=== PATIENT | female | born 1935 | race African-American/Black ===

== ENCOUNTER 2017-07-06 15:27 | Inpatient (IN) | payer OTHER ==
[~2017-07-06] VITALS: Ht 165.1 cm; Wt 83.0 kg
--- NOTE | 2017-07-06 16:00 | ED CARDIAC/CP/PALPITATIONS ---
History of Present Illness General Chief Complaint: Chest Pain Stated Complaint: PT IS HAVING CHEST PAIN SIB BY URGENT CARE Source: patient, family, old records Exam Limitations: no limitations Vital Signs & Intake/Output Vital Signs & Intake/Output Vital Signs Date Time Temp Pulse Resp B/P B/P Pulse O2 O2 Flow FiO2 Mean Ox Delivery Rate 07/07 1115 66 118/64 07/07 1030 62 108/58 07/07 1003 93 Nasal 2.0L Cannula 07/07 0940 62 108/58 07/07 0911 Nasal 2.0L Cannula 07/07 0600 97.1 50 24 104/70 92 Nasal 2.0L Cannula 07/07 0000 Nasal 2.0L Cannula 07/06 2354 98.3 85 20 149/68 98 Nasal 2.0L Cannula 07/06 2211 Nasal 2.0L Cannula 07/06 2029 93 18 146/65 97 Nasal 2.0L Cannula 07/06 1809 98.8 93 18 146/65 96 Nasal 2.0L Cannula 07/06 1633 89 07/06 1555 99.0 94 20 175/82 94 Room Air ED Intake and Output 07/07 0000 07/06 1200 Intake Total 0 Output Total Balance 0 Intake, Oral 0 Patient 190 lb Weight Weight Reported by Patient Measurement Method Allergies Coded Allergies: Sulfa (Sulfonamide Antibiotics) (Mild, RASH, ITCHING 07/06/17) Penicillins (RASH 07/06/17) Reconcile Medications Acetaminophen (Tylenol Extra Strength) 500 MG TABLET 1 TAB PO BID PAIN ( Reported) Aspirin (Ecotrin*) 81 MG TABLET.DR 1 TAB PO DAILY HEART/BLOOD (Reported) Atorvastatin Calcium 20 MG TABLET 1 TAB PO DAILY CHOLESTEROL (Reported) Digoxin 125 MCG TABLET 1 TAB PO DAILY HEART (Reported) Diltiazem HCl (Cardizem Cd) 240 MG CAP.ER.24H 1 CAP PO QAM HEART/BP (Reported ) Furosemide 40 MG TABLET 160 MG PO BID DIURETIC (Reported) Glimepiride 1 MG TABLET 1 TAB PO BID DM (Reported) Insulin Detemir (Levemir Flextouch) 100 UNIT/ML (3 ML) INSULN.PEN 14 UNITS SC QPM DM (Reported) Latanoprost 0.005 % DROPS 1 GTT OU QPM BOTH EYES (Reported) Methimazole 5 MG TABLET 1 TAB PO DAILY THYROID (Reported) Omeprazole 20 MG CAPSULE.DR 1 CAP PO DAILY GI (Reported) Sennosides (Senna) 8.6 MG TABLET 1 TAB PO BID GI (Reported) Sitagliptin Phos/Metformin HCl (Janumet 50-1,000 MG Tablet) 50 MG-1,000 MG TABLET 1 TAB PO BID DM (Reported) Valsartan 160 MG TABLET 1 TAB PO DAILY BP (Reported) Triage Note: RECEIVED 82 YO FEMALE SENT BY URGENT CARE FOR SEVERE COUGH X 3 TO 4 DAYS, NOW WITH SORENESS TO MID STERNAL AREA. PT REPORTS SOB WITH EXERTION TODAY AND CHEST SORENESS SINCE YESTERDAY. PT REPORTS PRODUCTIVE WHITE COUGH. Triage Nurses Notes Reviewed? yes Onset: Abrupt Duration: day(s): (3-4), intermittent Timing: recent history Quality/Severity: moderate, soarness Location: central Radiation: no radiation Activities at Onset: coughing Prior Chest Pain/Card Workup: angina, cardiac cath Modifying Factors: Worsens With: coughing. Nitro Today/Relief: no nitro taken today Aspirin Today: 81 mg x 1 Associated Symptoms: cough dyspnea HPI: 82-year-old female history of coronary artery disease with stent x 1, CHF diabetes hypertension hypothyroid presents the ER for evaluation with family sent in by an urgent care. The patient states for the past 3-4 days she's had a productive cough of clear sputum associated with soreness in her chest that she states it only present with coughing. She denies any chest pain at rest. she was walking at the grocery store and felt short of breath wit hexertion and lightheaded today so she went to the urgent care. she does not smoke. her legs are chornically swollen, no change from baseline. no abdominal pain, nvd. no fever, chills. she is on lasix 40mg. 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 She was told at the time of her last cath that she did not need any stents however pacemaker was placed at the time. (Anurag So) Past History Travel History Traveled to [place] past 21 day No Medical History Any Pertinent Medical History? see below for history Neurological: NONE EENT: NONE Cardiovascular: CAD, hypertension, hyperlipidemia, systolic CHF, pacemaker Respiratory: asthma Gastrointestinal: NONE Hepatic: NONE Renal: NONE Musculoskeletal: NONE Psychiatric: NONE Endocrine: diabetes, hypothyroidism Blood Disorders: NONE Cancer(s): NONE Surgical History Surgical History: non-contributory Psychosocial History What is your primary language Kazakh Tobacco Use: Never used Family History Hx Contributory? No (Anurag So) Review of Systems Review of Systems Constitutional: Reports: see HPI. Comments Review of systems: See HPI, All other systems negative. Constitutional, no chills no fever, HEENT: no sore throat no congestion Cardiovascular: chest pain , no palpitation Skin: no rashes, no change in skin Respiratory: dyspnea cough sputum no hemoptysis GI: No nausea no vomiting, no diarrhea, no bloating/constipation : No dysuria Muscle skeletal: No joint pain, no back pain, no neck pain, Neurologic: , no headache Heme/endocrine: No bruising (Anurag So) Physical Exam Physical Exam General Appearance: well developed/nourished, alert, awake Cardiovascular: regular rate/rhythm Comments: Well-developed well-nourished person in no acute distress HEENT: Normal EENT exam; PERRL, EOMI, HEAD is atraumatic. moist mucous membranes. Neck: Supple, normal range of motion Back: NFull range of motion Cardiovascular: Regular rate and rhythms no murmurs rubs or gallops, normal JVP Respiratory: Chest nontender.There were no bony deformities, no asymmetry. No respiratory distress. Patient speaking in full complete sentences. Breath sounds clear to auscultation bilaterally: NO W/R/R diminished breath sounds bilaterally Abdomen: Soft, nontender nondistended, no appreciable organomegaly. No ascites. Extremity: 2+ b/l le edema, full range of motion of extremities, Neuro: Alert oriented x3, motor sensory normal, There were no obvious focal neurologic abnormalities. Skin: No appreciable rash on exposed skin, skin is warm and dry. Psych: Mood and affect is normal, memory and judgment is normal. Core Measures ACS in differential dx? Yes CVA/TIA Diagnosis No Sepsis Present: No Sepsis Focused Exam Completed? No (Anurag So) Progress Differential Diagnosis: AMI, aortic dissection, atrial fibrillation, CHF/pulm edema, costochondritis, musculoskeletal pain, pneumonia, pneumothorax, pulmonary embolism, PVCs/PACs, rib fracture, unstable angina Plan of Care: Orders Procedure Date/time Status Consistent Carbohydrate 1 07/07 B Active THERAPIST ORDERS 07/07 0915 Complete OXYGEN SETUP (GEN) 07/07 0800 Complete RT: Reevaluation 07/07 0730 Active RT: Evaluation 07/07 0730 Active MAGNESIUM 07/07 0730 Complete TROPONIN LEVEL 07/07 0600 Complete CBC WITHOUT DIFFERENTIAL 07/07 0600 Complete BASIC ELECTROLYTES PLUS BUN&CR 07/07 0600 Complete EKG 07/07 0600 Active THYROID STIMULATING HORMONE 07/07 0145 Complete FREE T4 07/07 0145 Complete PT Evaluate & Treat 07/07 UNK Active PT EVAL LOW COMPLEX 20 MIN 07/07 UNK Complete Gait Training 07/07 UNK Complete Lab Add-on Test 07/07 UNK Active PHARMACY COMMUNICATION FORM 07/07 UNK Active TROPONIN LEVEL 07/06 2358 Complete EKG 07/06 2358 Active Pathway - chart 07/06 2346 Active House Staff 07/06 2346 Active Patient Data 07/06 2346 Active FingerStick- Glucose 07/06 2238 Active Weight 07/06 2237 Active Vital Signs 07/06 2216 Active Teach/Educate 07/06 221 Active Pain Treatment and Response 07/06 221 Active Nutritional Intake, Monitor 07/06 221 Active Isolation 07/06 2216 Active Intake & Output 07/06 221 Active Patient Care Conference 07/06 221 Active Activity/Ambulation 07/06 221 Active TRC EVALUATION (GEN) 07/06 2117 Complete Patient Data 07/06 1910 Active ED Holding Orders 07/06 1839 Active Admit to inpatient 07/06 1839 Active Vital Signs 07/06 1839 Active Code Status 07/06 1839 Active DIGOXIN 07/06 1700 Complete BLOOD CULTURE 07/06 1649 Active BLOOD CULTURE 07/06 1641 Active RAPID VIRAL INFLUENZA A 07/06 1611 Complete Intake & Output 07/06 1602 Active EKG 07/06 1558 Active Telemetry/Restaurant Recruiter 07/06 1554 Complete TROPONIN LEVEL 07/06 1554 Complete PARTIAL THROMBOPLASTIN TIME 07/06 1554 Complete MAGNESIUM 07/06 1554 Complete COMPREHENSIVE METABOLIC PANEL 07/06 1554 Complete CBC WITHOUT DIFFERENTIAL 07/06 1554 Complete EKG 07/06 1530 Active PEAK FLOW MEASUREMENT (GEN) 07/06 UNK Complete Lab Add-on Test 07/06 UNK Active VTE Mechanical Prophylaxis 07/06 UNK Active Current Medications Sig/Bere Start time Last Medication Dose Stop Time Status Admin Insulin Detemir 14 UNITS QPM 07/07 2200 AC (Levemir) Atorvastatin Calcium 20 MG 1700 07/07 1700 AC (Lipitor) Furosemide 60 MG 0700,1700 07/07 1700 UNVr (Lasix) Albuterol Sulfate 3 ML BID 07/07 1000 AC 07/07 (Proventil) 0929 Aspirin Buffered 81 MG DAILY 07/07 1000 AC 07/07 (Ecotrin) 1018 Digoxin 0.125 MG DAILY 07/07 1000 AC 07/07 (Lanoxin) 1030 Diltiazem HCl 240 MG QAM 07/07 1000 AC 07/07 (Cardizem CD) 1112 Enoxaparin Sodium 40 MG DAILY 07/07 1000 AC 07/07 (Lovenox) 1018 Losartan Potassium 50 MG DAILY 07/07 1000 AC (Cozaar) Methimazole 5 MG DAILY 07/07 1000 AC 07/07 (Tapazole 5 MG 1018 Tablet) Methylprednisolone 40 MG Q12 07/07 1000 AC 07/07 (Solumedrol) 1018 Omeprazole 20 MG DAILY 07/07 1000 AC 07/07 (Prilosec) 1018 Insulin Aspart 0 TIDAC/HS 07/07 0800 AC 07/07 (NovoLOG) 1201 Acetaminophen 650 MG Q6P PRN 07/06 2345 AC 07/07 (Tylenol) 0013 Acetaminophen 1,000 MG Q6P PRN 07/06 2345 AC (Ofirmev) Budesonide/ 2 PUF BID 07/06 2200 AC 07/07 Formoterol Fumarate 1017 (Symbicort) Latanoprost 1 GTT QPM 07/06 2200 AC 07/06 (Xalatan) 2345 Laboratory Tests 07/07/17 0730: Anion Gap 10, Estimated GFR > 60, BUN/Creatinine Ratio 25.0, Magnesium 1.6, Troponin I < 0.01, CBC w Diff NO MAN DIFF REQ, RBC 4.25, MCV 91.8, MCH 30.6, RDW 14.3, MPV 8.9, Gran % 82.3 H, Lymphocytes % 11.3 L, Monocytes % 6.3, Eosinophils % 0, Basophils % 0.1, Absolute Granulocytes 2.9, Absolute Lymphocytes 0.4 L, Absolute Monocytes 0.2, Absolute Eosinophils 0, Absolute Basophils 0, PUBS MCHC 33.3 07/07/17 0619: Magnesium Cancelled 07/07/17 0145: Troponin I < 0.01, TSH 0.050 L, Free T4 1.38 07/06/17 1700: Anion Gap 13, Estimated GFR > 60, BUN/Creatinine Ratio 20.0, Glucose 359 H, Calcium 9.2, Magnesium 1.2 L, Total Bilirubin 0.9, AST 30, ALT 48, Alkaline Phosphatase 91, Troponin I < 0.01, Total Protein 6.7, Albumin 3.8, Globulin 2.9, Albumin/Globulin Ratio 1.3, APTT 28, Digoxin 0.8 07/06/17 1615: CBC w Diff NO MAN DIFF REQ, RBC 4.31, MCV 90.6, MCH 30.0, RDW 14.7 H, MPV 8.5, Gran % 78.7 H, Lymphocytes % 9.6 L, Monocytes % 11.2 H, Eosinophils % 0.2, Basophils % 0.3, Absolute Granulocytes 4.7, Absolute Lymphocytes 0.6 L, Absolute Monocytes 0.7 H, Absolute Eosinophils 0, Absolute Basophils 0, PUBS MCHC 33.1 Microbiology 07/06 1805 BLOOD: Blood Culture - RES 07/06 1700 BLOOD: Blood Culture - RES 07/06 1625 NASOPHARYN: Influenza Virus A & B Rapid Smear - COMP labs ordered, dr gomez and dr jones in room to eval pt and ekg agree no acute changes, likely chronic. chandni rodriguez, pt med with solumedrol 125mg iv. Patient 89 % on room air placed on 2 L up to 96%, premature discharge would BE medically harmful 1800 I discussed with the patient and her son at length all of her lab results given hypoxia patient was attempted to titrate down became hypoxic once again premature discharge in medically harmful discussed the issue a IV steroids when necessary respiratory treatments trend labs and troponin premature discharge in medically harmful which they're in agreement with. 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 dr diez states she will call the son to discuss Diagnostic Imaging: Viewed by Me: Radiology Read, CT Scan. Discussed w/RAD: Radiology Read, CT Scan. Radiology Impression: PATIENT: KALPESH SANTIAGO PRESENT AGE: 82 PATIENT ACCOUNT NO: [id number] : 36 LOCATION: [facility] ORDERING PHYSICIAN: Anurag GARY SERVICE DATE: 07/06/17 EXAM TYPE: RAD - XRY- PORTABLE CHEST XRAY EXAMINATION: XR PORTABLE CHEST CLINICAL INFORMATION: Dyspnea and cough; question pneumonia or congestive heart failure. COMPARISON: None. TECHNIQUE: Portable frontal view of the chest was obtained. FINDINGS: The heart, great vessels, pulmonary vasculature and mediastinum are normal. A dual-lead, dual-chamber pacemaker device is seen, without lead fracture noted. There is no pulmonary vascular congestion or overt pulmonary edema. There is mild scar/ subsegmental atelectasis in the mid left lung field. There are peripheral right mid lung field nodules, possibly calcified granulomas, although this cannot be said with certainty. There is no infiltrate, effusion or pneumothorax. No acute osseous abnormality is seen. IMPRESSION: 1. There is mild left mid lung field scar/subsegmental atelectasis. 2. There are peripheral right mid lung field pulmonary nodules, possibly calcified granulomas. In the absence of outside comparison radiographs documenting long-term stability, consider further evaluation with CT. 3. No focal infiltrate or congestive heart failure is seen. DICTATED BY: Jeronimo Bernard MD DATE/TIME DICTATED:07/06/171638 KOSHER BUTCHER:JOLIE DATE/TIME TRANSCRIBED:07/06/171638 CONFIDENTIAL, DO NOT COPY WITHOUT APPROPRIATE AUTHORIZATION. <Electronically signed in Other Vendor System> SIGNED BY: Jeronimo Bernard MD 07/06/171646, PATIENT: KALPESH SANTIAGO PRESENT AGE: 82 PATIENT ACCOUNT NO: [id number] : 36 LOCATION: [facility] ORDERING PHYSICIAN: Anurag GARY SERVICE DATE: 07/06/17183 EXAM TYPE: CAT - CTA CHEST-PULMONARY EMBOLISM EXAMINATION: CT ANGIOGRAM OF THE CHEST WITH AND WITHOUT CONTRAST (CT PULMONARY ANGIOGRAM FOR PE) CLINICAL INFORMATION: Reason for Study:
Presumptive Dx: RO PE
Signs Symptoms: HYPOXIA, CP
COMPARISON: Same day chest x-ray TECHNIQUE: Prior to contrast administration, noncontrast localization images were obtained. Subsequently, multidetector volumetric imaging was performed from the thoracic inlet to below the diaphragms following the administration of 79 mL Optiray 320 intravenous contrast. No contrast reaction reported. Sagittal, coronal, and MIP oblique sagittal reformatted images were obtained on the CT workstation, uploaded to PACS, and reviewed. Total exam dose-length product 497 mGy-cm. FINDINGS: QUALITY OF STUDY/CONTRAST BOLUS: Satisfactory PULMONARY ARTERIES: No central or segmental pulmonary emboli. THORACIC AORTA: No aneurysm or dissection. LUNG: Pulmonary nodule within the right middle lobe measures 0.7 cm in size (image 288, series 2). There are numerous pulmonary nodules at the left lung base. For example, pulmonary nodule measures 0.6 cm and demonstrates mild spiculation (image 335, series 2). No significant pulmonary nodules are noted in the superior segment of left lower lobe or within the left upper lobe. The right upper lobe appears relatively spared as well. A few tiny 2 mm pulmonary nodules are noted anteriorly. There are calcified granulomas present in the right lower lobe. In addition, there are a few scattered pulmonary nodules measuring less than 4 mm. PLEURA: No pleural effusion or pneumothorax. MEDIASTINUM: The right lobe of the thyroid gland is significantly enlarged and extends inferiorly into the right upper paratracheal space. The main pulmonary artery is enlarged measuring 3.6 cm. Normal heart size. No pericardial effusion. No hilar or mediastinal lymphadenopathy. No evidence of septal bowing or right heart strain. CHEST WALL/AXILLA: No axillary or internal mammary lymphadenopathy. OSSEOUS STRUCTURES: No suspicious lytic or blastic lesion. Diffuse idiopathic skeletal hyperostosis of the midthoracic spine. UPPER ABDOMEN: Scattered hypoattenuating lesions within the liver, partially imaged, are most consistent with cysts. Small hiatal hernia. No reflux of contrast into the hepatic veins to suggest elevated right heart pressures. IMPRESSION: 1. No acute pulmonary embolism. 2. Numerous pulmonary nodules some with suspicious features at the lung bases including the right middle lobe. Given the predominant basilar distribution these could represent metastatic pulmonary nodules. 3. Enlarged main pulmonary artery suggesting underlying pulmonary hypertension. 4. Asymmetrically enlarged thyroid gland. Consider nonemergent thyroid ultrasound evaluation. VTE: negative Various management parameters for solitary pulmonary nodules are in the literature. According to the Fleischner Society, recommendations for pulmonary nodules are as follows: Nodule size < or = to 4 mm in LOW RISK PATIENTS: No follow up needed. Nodule size < or = to 4 mm in HIGH RISK PATIENTS: Follow up CT at 12 months; if unchanged, no further follow up. Nodule size > 4-6 mm in LOW RISK PATIENTS: Follow up CT at 12 months; if unchanged, no further follow up. Nodule size > 4-6 mm in HIGH RISK PATIENTS: Initial follow up CT at 6-12 months, then at 18-24 months if no change. Nodule size > 6-8 mm in LOW RISK PATIENTS: Initial follow up CT at 6-12 months, then at 18-24 months if no change. Nodule size > 6-8 mm in HIGH RISK PATIENTS: Initial follow up CT at 3-6 months, then 9- 12 months and 24 months if no change. Nodule size > 8 mm in LOW RISK PATIENTS: Follow up CT at around 3, 9, and 24 months, dynamic contrast-enhanced CT, PET, and/or biopsy. Nodule size > 8 mm in HIGH RISK PATIENTS: Same as for low-risk patients. DICTATED BY: Ann Osbron MD DATE/TIME DICTATED:07/06/171940 KOSHER BUTCHER:JOLIE DATE/TIME TRANSCRIBED:07/06/171940 CONFIDENTIAL, DO NOT COPY WITHOUT APPROPRIATE AUTHORIZATION. <Electronically signed in Other Vendor System> SIGNED BY: Ann Osborn MD 07/06/171956 Initial ED EKG: nsr at 80, t wave inversions v3-v6, normal axis Rhythm Strip: normal sinus rhythm (Anurag So) Departure Departure Time of Disposition: 1839 Disposition: STILL A PATIENT Condition: Stable Clinical Impression Primary Impression: Asthmatic bronchitis Qualifiers: Asthma severity: mild Asthma persistence: intermittent Asthma complication type: uncomplicated Qualified Code: J45.20 - Mild intermittent asthma, uncomplicated Secondary Impressions: Hypomagnesemia, Hypoxia, Lung nodules Referrals: Chad Hawk MD (PCP/Family) Departure Forms: Customer Survey General Discharge Information Admission Note Spoke With: Uzair Diez MD Documentation of Exam: Documentation of any treatments & extenuating circumstances including Concerns Regarding Discharge (functional status, medication knowledge or non-compliance, living conditions, etc.) that warrant an admission rather than observation: IV STEROIDS RESP TX PRN, TREND LABS, TREN TROPONIN, CARDIOLOGY, PULM CONSULT, PREMATURE DISCHARGE WOULD BE MEDICALLY HARMFUL PT IS NOT O2 DEPENDENT AND HYPOXIC ON ROOM AIR. 96-97% ON 2L (Anurag So) PA/PRODUCT MARKETING DIRECTOR Co-Sign Statement Statement: ED Attending supervision documentation- [X] I saw and evaluated the patient. I have also reviewed all the pertinent lab results and diagnostic results. I agree with the findings and the plan of care as documented in the PA's/PRODUCT MARKETING DIRECTOR's documentation. [X] I have reviewed the ED Record and agree with the PA's/PRODUCT MARKETING DIRECTOR's documentation. [] Additions or exceptions (if any) to the PAs/PRODUCT MARKETING DIRECTOR's note and plan are summarized below: [] (Luis Felipe RAND,Valeri) Critical Care Note Critical Care Note Critical Care Time: non-applicable (Anurag So)
[2017-07-06 16:25] LABS: ABSOLUTE BASOPHIL COUNT 0 /CUMM (0.0-0.2); ABSOLUTE EOSINOPHIL COUNT 0 /CUMM (0.0-0.7); ABSOLUTE GRANULOCYTE CT 4.7 /CUMM (1.4-6.5); ABSOLUTE LYMPH COUNT 0.6 /CUMM (1.2-3.4); ABSOLUTE MONOCYTE COUNT 0.7 /CUMM (0.10-0.60); BASOPHIL % 0.3 % (0.0-2.0); EOSINOPHIL % 0.2 % (0-5); GRANULOCYTE % 78.7 % (42.2-75.2); HEMATOCRIT 39.1 % (37-47); MEAN CORPUSCULAR HGB CONC 33.1 G/DL (33.0-37.0); MEAN CORPUSCULAR VOLUME 90.6 FL (81.0-99.0); MEAN PLATELET VOLUME 8.5 FL (7.4-10.4); PLATELET COUNT 251 /CUMM (130-400); RBC DISTRIBUTION WIDTH 14.7 % (11.5-14.5); RED BLOOD CELL CT 4.31 /CUMM (4.20-5.40)
--- NOTE | 2017-07-06 16:47 | RADIOLOGY REPORT ---
EXAMINATION: XR PORTABLE CHEST CLINICAL INFORMATION: Dyspnea and cough; question pneumonia or congestive heart failure. COMPARISON: None. TECHNIQUE: Portable frontal view of the chest was obtained. FINDINGS: The heart, great vessels, pulmonary vasculature and mediastinum are normal. A dual-lead, dual-chamber pacemaker device is seen, without lead fracture noted. There is no pulmonary vascular congestion or overt pulmonary edema. There is mild scar/subsegmental atelectasis in the mid left lung field. There are peripheral right mid lung field nodules, possibly calcified granulomas, although this cannot be said with certainty. There is no infiltrate, effusion or pneumothorax. No acute osseous abnormality is seen. IMPRESSION: 1. There is mild left mid lung field scar/subsegmental atelectasis. 2. There are peripheral right mid lung field pulmonary nodules, possibly calcified granulomas. In the absence of outside comparison radiographs documenting long-term stability, consider further evaluation with CT. 3. No focal infiltrate or congestive heart failure is seen.
[2017-07-06 17:20] LABS: PTT 28 SEC (25-37)
[2017-07-06] MEDS ORDERED: ASPIRIN EC81 M1 PO (18:12)
[2017-07-06] MEDS ORDERED: SENNA8.6 M3 PO (18:13)
[2017-07-06] MEDS ORDERED: TYLENOL EXTRA500 M2 PO (18:13)
[2017-07-06] MEDS ORDERED: LEVEMIR FL100 UNIT/1 SC (18:14)
[2017-07-06] MEDS ORDERED: LATANOPROST2.5 ML OU (18:14)
[2017-07-06] MEDS ORDERED: FUROSEMIDE40 M1 PO (18:15)
[2017-07-06] MEDS ORDERED: OMEPRAZOLE20 M2 PO (18:16)
[2017-07-06] MEDS ORDERED: ATORVASTATIN CA20 M1 PO (18:16)
[2017-07-06] MEDS ORDERED: DIGOXIN125 MCG PO (18:16)
[2017-07-06] MEDS ORDERED: METHIMAZOLE5 M1 PO (18:16)
[2017-07-06] MEDS ORDERED: GLIMEPIRIDE1 M1 PO (18:16)
[2017-07-06] MEDS ORDERED: CARDIZEM CD240 M1 PO (18:17)
[2017-07-06] MEDS ORDERED: JANUMET 50-1,01 EACH PO (18:17)
[2017-07-06] MEDS ORDERED: VALSARTAN160 M1 PO (18:17)
--- NOTE | 2017-07-06 19:45 | Cons- Cardiology ---
General Information and HPI Consulting Request Date of Consult: 07/06/17 Requested By: Dr. Briscoe Reason for Consult: Chest pain with abnormal ECG Source of Information: patient, family Exam Limitations: no limitations History of Present Illness: The patient is a very nice 82 year old female who is followed by physicians in [place]. The patient is in the ER after being sent from the Urgent care center for evaluation of several days of cough and now with onset of chest pressure which appears to be musculoskeletal related to the cough. I was asked by Dr Briscoe in the ER to evaluate the patient due to the presence of her chest discomfort and an abnormal ECG. THe patient describes chest discomfort which is different than her prior cardiac symptoms. She does have a history of knownb CAD and stent but, per the patient, had a followup cath several months ago which showed patent coronaries.. She also notes that she had a PPM placed at that time. Allergies/Medications Allergies: Coded Allergies: Sulfa (Sulfonamide Antibiotics) (Mild, RASH, ITCHING 07/06/17) Penicillins (RASH 07/06/17) Home Med List: Acetaminophen (Tylenol Extra Strength) 500 MG TABLET 1 TAB PO BID PAIN ( Reported) Aspirin (Ecotrin*) 81 MG TABLET.DR 1 TAB PO DAILY HEART/BLOOD (Reported) Atorvastatin Calcium 20 MG TABLET 1 TAB PO DAILY CHOLESTEROL (Reported) Digoxin 125 MCG TABLET 1 TAB PO DAILY HEART (Reported) Diltiazem HCl (Cardizem Cd) 240 MG CAP.ER.24H 1 CAP PO QAM HEART/BP (Reported ) Furosemide 40 MG TABLET 160 MG PO BID DIURETIC (Reported) Glimepiride 1 MG TABLET 1 TAB PO BID DM (Reported) Insulin Detemir (Levemir Flextouch) 100 UNIT/ML (3 ML) INSULN.PEN 14 UNITS SC QPM DM (Reported) Latanoprost 0.005 % DROPS 1 GTT OU QPM BOTH EYES (Reported) Methimazole 5 MG TABLET 1 TAB PO DAILY THYROID (Reported) Omeprazole 20 MG CAPSULE.DR 1 CAP PO DAILY GI (Reported) Sennosides (Senna) 8.6 MG TABLET 1 TAB PO BID GI (Reported) Sitagliptin Phos/Metformin HCl (Janumet 50-1,000 MG Tablet) 50 MG-1,000 MG TABLET 1 TAB PO BID DM (Reported) Valsartan 160 MG TABLET 1 TAB PO DAILY BP (Reported) Current Medications: Current Medications Sig/Bere Start time Last Medication Dose Route Stop Time Status Admin Albuterol Sulfate 3 ML ONCE ONE 07/06 1630 DC 07/06 INH 07/06 1631 1629 Insulin Detemir 14 UNITS ONCE ONE 07/06 1845 DC 07/06 SC 07/06 1846 1920 Ipratropium Beals 2.5 ML ONCE ONE 07/06 1630 DC 07/06 INH 07/06 1631 1629 Magnesium Sulfate 1 GM ONCE ONE 07/06 1845 AC 07/06 Dextrose/Water 100 ML IV 07/06 2244 1920 Methylprednisolone 0 .STK-MED ONE 07/06 1626 DC .ROUTE Methylprednisolone 125 MG ONCE ONE 07/06 1615 DC 07/06 IV 07/06 1616 1630 Past History Travel History Traveled to [place] past 21 day No Medical History Neurological: NONE EENT: NONE Cardiovascular: CAD, hypertension, hyperlipidemia, systolic CHF, pacemaker Respiratory: asthma Gastrointestinal: NONE Hepatic: NONE Renal: NONE Musculoskeletal: NONE Psychiatric: NONE Endocrine: diabetes, hypothyroidism Blood Disorders: NONE Cancer(s): NONE Surgical History Surgical History: non-contributory Exam & Diagnostic Data Vital Signs and I&O Vital Signs Date Time Temp Pulse Resp B/P B/P Pulse O2 O2 Flow FiO2 Mean Ox Delivery Rate 07/06 1809 98.8 93 18 146/65 96 Nasal 2.0L Cannula 07/06 1633 89 07/06 1555 99.0 94 20 175/82 94 Room Air Intake & Output 07/06 1600 07/06 0800 07/06 0000 07/05 1600 07/05 0800 07/05 0000 Intake Total Output Total Balance Patient 190 lb Weight Weight Estimated Measurement Method Physical Exam: General: Well-developed well-nourished female in no acute distress HEENT: Normal Neck: Supple, normal range of motion, JVP normal, Carotids normal Cardiovascular: Regular rate and rhythms , 1/6 systolic murmur Respiratory: Chest nontender.Clear to A / P bilaterally Abdomen: Soft, nontender nondistended, no appreciable organomegaly. No ascites. Extremity: 1-2+ b/l le edema, full range of motion of extremities, Neuro: Grossly non focal Skin: No appreciable rash on exposed skin, skin is warm and dry. Labs/Oli Results: Laboratory Tests 07/06 07/06 1700 1615 Chemistry Sodium (137 - 145 mmol/L) 136 L Potassium (3.5 - 5.1 mmol/L) 4.3 Chloride (98 - 107 mmol/L) 94 L Carbon Dioxide (22 - 30 mmol/L) 30 Anion Gap (5 - 16) 13 BUN (7 - 17 mg/dL) 14 Creatinine (0.5 - 1.0 mg/dL) 0.7 Estimated GFR (>60 ml/min) > 60 BUN/Creatinine Ratio (7 - 25 %) 20.0 Glucose (65 - 99 mg/dL) 359 H Calcium (8.4 - 10.2 mg/dL) 9.2 Magnesium (1.6 - 2.3 mg/dL) 1.2 L Total Bilirubin (0.2 - 1.3 mg/dL) 0.9 AST (14 - 36 U/L) 30 ALT (9 - 52 U/L) 48 Alkaline Phosphatase (<127 U/L) 91 Troponin I (< 0.11 ng/ml) < 0.01 Total Protein (6.3 - 8.2 g/dL) 6.7 Albumin (3.5 - 5.0 g/dL) 3.8 Globulin (1.9 - 4.2 gm/dL) 2.9 Albumin/Globulin Ratio (1.1 - 2.2 %) 1.3 Coagulation APTT (25 - 37 SEC) 28 Hematology CBC w Diff NO MAN DIFF REQ WBC (4.8 - 10.8 /CUMM) 6.0 RBC (4.20 - 5.40 /CUMM) 4.31 Hgb (12.0 - 16.0 G/DL) 12.9 Hct (37 - 47 %) 39.1 MCV (81.0 - 99.0 FL) 90.6 MCH (27.0 - 31.0 PG) 30.0 RDW (11.5 - 14.5 %) 14.7 H Plt Count (130 - 400 /CUMM) 251 MPV (7.4 - 10.4 FL) 8.5 Gran % (42.2 - 75.2 %) 78.7 H Lymphocytes % (20.5 - 51.1 %) 9.6 L Monocytes % (1.7 - 9.3 %) 11.2 H Eosinophils % (0 - 5 %) 0.2 Basophils % (0.0 - 2.0 %) 0.3 Absolute Granulocytes (1.4 - 6.5 /CUMM) 4.7 Absolute Lymphocytes (1.2 - 3.4 /CUMM) 0.6 L Absolute Monocytes (0.10 - 0.60 /CUMM) 0.7 H Absolute Eosinophils (0.0 - 0.7 /CUMM) 0 Absolute Basophils (0.0 - 0.2 /CUMM) 0 PUBS MCHC (33.0 - 37.0 G/DL) 33.1 Diagnostic Data EKG Results NSR; PRWP; ST depressioin suggestive of ischemia vs strain pattern. CXR Results FINDINGS: The heart, great vessels, pulmonary vasculature and mediastinum are normal. A dual-lead, dual-chamber pacemaker device is seen, without lead fracture noted. There is no pulmonary vascular congestion or overt pulmonary edema. There is mild scar/subsegmental atelectasis in the mid left lung field. There are peripheral right mid lung field nodules, possibly calcified granulomas, although this cannot be said with certainty. There is no infiltrate, effusion or pneumothorax. No acute osseous abnormality is seen. IMPRESSION: 1. There is mild left mid lung field scar/subsegmental atelectasis. 2. There are peripheral right mid lung field pulmonary nodules, possibly calcified granulomas. In the absence of outside comparison radiographs documenting long-term stability, consider further evaluation with CT. 3. No focal infiltrate or congestive heart failure is seen. Assessment/Plan Assessment/Plan Assessment: 1. Chest pain syndrome 2. Cough with possible bronchitis 3. History of CAD / stent 4. PPM 5. Hypomagnesemia 6. Hyperglycemia 7. Recommendations: -Check troponin x 2 -Obtain copies of outside cardiology records. -Replete Mg -Repeat ECG in several hours and in AM if necessary. Consult Acknowledgment - Thank you for your consult request.
--- NOTE | 2017-07-06 19:49 | History & Physical ---
Yelitza RAND,[facility] 07/06/171948: General Information and HPI MD Statement: I have seen and personally examined KALPESH DE LA TORRE and documented this H&P. The patient is a 82 year old F who presented with a patient stated chief complaint of [productive cough]. Source of Information: patient, family Exam Limitations: no limitations History of Present Illness: Ms. De La Torre is an 82-year-old lady with past medical history significant for coronary artery disease status post stent placement, atrial fibrillation(not on anticoagulation), hypertension, hyperlipidemia, CHF, diabetes, hypothyroidism and asthma presents with worsening cough with sputum production for the past 3-4 days. According to the patient, she has chronic productive cough with clear/frothy sputum for years but it recently got worse with increased sputum production, shortness of breath and wheezing for the past 3-4 days. She went to [employer] this morning to get herself some stuff where she felt extremely short of breath, weak and lightheaded, was sent to the urgent care clinic, who referred her to the [place] ER for further evaluation. Shortness of breath is worse especially when lying down. Also reports chest soreness with cough but denies any chest pain, palpitations, nausea, vomiting or diaphoresis. She has received her flu shot this year, denies any fever/chills, sick contacts, recent travel or any new -onset rash. Also reports abdominal discomfort with diarrhea since yesterday( had one episode of loose stools yesterday and 1 episode today) but denies any blood in the stools. Patient has not been taking her Symbicort for the past 9 months and has not followed up with her logistics planning manager. Denies any previous hospitalizations for asthma exacerbation or history of intubation. Allergies/Medications Allergies: Coded Allergies: Sulfa (Sulfonamide Antibiotics) (Mild, RASH, ITCHING 07/06/17) Penicillins (RASH 07/06/17) Home Med list Acetaminophen (Tylenol Extra Strength) 500 MG TABLET 1 TAB PO BID PAIN ( Reported) Aspirin (Ecotrin*) 81 MG TABLET.DR 1 TAB PO DAILY HEART/BLOOD (Reported) Atorvastatin Calcium 20 MG TABLET 1 TAB PO DAILY CHOLESTEROL (Reported) Digoxin 125 MCG TABLET 1 TAB PO DAILY HEART (Reported) Diltiazem HCl (Cardizem Cd) 240 MG CAP.ER.24H 1 CAP PO QAM HEART/BP (Reported ) Furosemide 40 MG TABLET 160 MG PO BID DIURETIC (Reported) Glimepiride 1 MG TABLET 1 TAB PO BID DM (Reported) Insulin Detemir (Levemir Flextouch) 100 UNIT/ML (3 ML) INSULN.PEN 14 UNITS SC QPM DM (Reported) Latanoprost 0.005 % DROPS 1 GTT OU QPM BOTH EYES (Reported) Methimazole 5 MG TABLET 1 TAB PO DAILY THYROID (Reported) Omeprazole 20 MG CAPSULE.DR 1 CAP PO DAILY GI (Reported) Sennosides (Senna) 8.6 MG TABLET 1 TAB PO BID GI (Reported) Sitagliptin Phos/Metformin HCl (Janumet 50-1,000 MG Tablet) 50 MG-1,000 MG TABLET 1 TAB PO BID DM (Reported) Valsartan 160 MG TABLET 1 TAB PO DAILY BP (Reported) Past History Travel History Traveled to [place] past 21 day No Medical History Neurological: NONE EENT: NONE Cardiovascular: CAD, CHF, hypertension, hyperlipidemia, pacemaker placement( January 2017) Respiratory: asthma Gastrointestinal: NONE Hepatic: NONE Renal: NONE Musculoskeletal: NONE Psychiatric: NONE Endocrine: diabetes, hypothyroidism Blood Disorders: NONE Cancer(s): NONE Surgical History Surgical History: knee replacement Past Family/Social History Family History Relations & Conditions if any FATHER *No pertinent family history FH: hypertension MOTHER *No pertinent family history FH: diabetes mellitus FH: hypertension BROTHER FH: diabetes mellitus SISTER FH: diabetes mellitus Psychosocial History Where do you live? Home Who Do You Live With? self Primary Language: Luxembourgish Smoking Status: Never Smoked ETOH Use: denies use Illicit Drug Use: denies illicit drug use Functional Ability ADLs Independent: dressing, eating, toileting, bathing. Review of Systems Review of Systems Constitutional: Reports: weakness. EENTM: Reports: no symptoms. Cardiovascular: Reports: no symptoms. Respiratory: Reports: cough, short of breath, sputum production, wheezing. GI: Reports: diarrhea. Genitourinary: Reports: no symptoms. Musculoskeletal: Reports: joint pain, neck pain. Skin: Reports: no symptoms. Neurological/Psychological: Reports: no symptoms. Hematologic/Endocrine: Reports: no symptoms. Immunologic/Allergic: Reports: no symptoms. All Other Systems: Reviewed and Negative Exam & Diagnostic Data Last 24 Hrs of Vital Signs/I&O Vital Signs Date Time Temp Pulse Resp B/P B/P Pulse O2 O2 Flow FiO2 Mean Ox Delivery Rate 07/06 2354 98.3 85 20 149/68 98 Nasal 2.0L Cannula 07/06 2211 Nasal 2.0L Cannula 07/06 202 93 18 146/65 97 Nasal 2.0L Cannula 07/06 1809 98.8 93 18 146/65 96 Nasal 2.0L Cannula 07/06 1633 89 07/06 1555 99.0 94 20 175/82 94 Room Air Intake & Output 07/07 0800 07/07 0000 07/06 1600 Intake Total 0 Output Total Balance 0 Intake, Oral 0 Patient 190 lb 190 lb Weight Weight Reported by Patient Estimated Measurement Method Physical Exam General Appearance Alert, Oriented X3, Cooperative, No Acute Distress Skin No Rashes, No Breakdown HEENT Atraumatic, PERRLA, EOMI, Mucous Membr. moist/pink Neck Supple, No JVD, No thryomegaly Cardiovascular Regular Rate, Normal S1, Normal S2 Lungs Wheezing on Bilateral Lung hollins Abdomen Normal Bowel Sounds, Soft, No Tenderness Extremities No Clubbing, No Cyanosis, Normal Pulses, +2 pitting edema bilaterally, Chronic venous stasis changes Last 24 Hrs of Labs/Oli: Laboratory Tests 07/06/171699: Anion Gap 13, Estimated GFR > 60, BUN/Creatinine Ratio 20.0, Glucose 359 H, Calcium 9.2, Magnesium 1.2 L, Total Bilirubin 0.9, AST 30, ALT 48, Alkaline Phosphatase 91, Troponin I < 0.01, Total Protein 6.7, Albumin 3.8, Globulin 2.9, Albumin/Globulin Ratio 1.3, APTT 28, Digoxin 0.8 07/06/17 1615: CBC w Diff NO MAN DIFF REQ, RBC 4.31, MCV 90.6, MCH 30.0, RDW 14.7 H, MPV 8.5, Gran % 78.7 H, Lymphocytes % 9.6 L, Monocytes % 11.2 H, Eosinophils % 0.2, Basophils % 0.3, Absolute Granulocytes 4.7, Absolute Lymphocytes 0.6 L, Absolute Monocytes 0.7 H, Absolute Eosinophils 0, Absolute Basophils 0, PUBS MCHC 33.1 Microbiology 07/06 1805 BLOOD: Blood Culture - RECD 07/06 1700 BLOOD: Blood Culture - RECD 07/06 1625 NASOPHARYN: Influenza Virus A & B Rapid Smear - COMP Diagnostic Data CXR Results IMPRESSION: 1. There is mild left mid lung field scar/subsegmental atelectasis. 2. There are peripheral right mid lung field pulmonary nodules, possibly calcified granulomas. In the absence of outside comparison radiographs documenting long-term stability, consider further evaluation with CT. 3. No focal infiltrate or congestive heart failure is seen. Other Results CTA CHEST-PULMONARY EMBOLISM IMPRESSION: 1. No acute pulmonary embolism. 2. Numerous pulmonary nodules some with suspicious features at the lung bases including the right middle lobe. Given the predominant basilar distribution these could represent metastatic pulmonary nodules. 3. Enlarged main pulmonary artery suggesting underlying pulmonary hypertension. 4. Asymmetrically enlarged thyroid gland. Consider nonemergent thyroid ultrasound evaluation. VTE: negative Assessment/Plan Assessment: Ms. De La Torre is an 82-year-old lady with past medical history significant for coronary artery disease status post stent placement, atrial fibrillation(not on anticoagulation), hypertension, hyperlipidemia, CHF, diabetes, hypothyroidism and asthma presents with worsening cough with sputum production for the past 3-4 days. A/P; 1. Asthma exacerbation; - We will admit the patient to general medicine floor - Start on IV Solu-Medrol 40 mg every 12 - [facility] nebs - Restart home dose of Symbicort - Follow-up sputum cultures - Supplemental oxygen as needed 2. EKG changes; - History of coronary artery disease status post stent placement in 2014, repeat recent cath in January 2017 - Initial set of troponins negative, we'll repeat troponins and EKG x 2 to rule out ACS. - Appreciate cardiology recommendations 3. Hypomagnesemia(1.2); - Will replete magnesium levels - Repeat labs in a.m. 4. Lung nodules on CT chest - Patient already aware of the lung nodules but unsure about the source/cause - We will obtain all records from [facility](including colonoscopy/mammogram if ever done in the past) 5. Diabetes - We will hold oral hypoglycemic agents - Start the patient on insulin sliding scale and Accu-Cheks - Continue Levemir 14 units daily at bedtime 6. Chronic medical conditions(hypertension, hypothyroidism, CHF, atrial fibrillation); - We will continue home medications DVT prophylaxis; Alps only(no pharmacological DVT prophylaxis because of her history of GI bleed) Patient is full code As Ranked By This Provider Problem List: 1. Hypoxia 2. Hypomagnesemia 3. Lung nodule Core Measures/Misc (03/10) Acute Coronary Syndrome ACS Diagnosis: No Congestive Heart Failure Congestive Heart Failure Diagnosis No Cerebrovascular Accident CVA/TIA Diagnosis: No VTE (View Protocol) VTE Risk Factors Age>40 No Mechanical VTE Prophylaxis d/t N/A MechProphylax Ordered No VTE Pharm Prophylaxis d/t Medical Contraindication Sepsis (View protocol) Sepsis Present: No Yudi Lam 07/07/17 0016: Resident Review Statement Resident Statement: examined this patient, discussed with manager international Other Findings: Patient is a 82 year-old woman with a past medical history significant for, atrial fibrillation(not on any anticoagulation due to GI bleed), history of coronary artery disease status post stent 2014, hypertension, hyperlipidemia, heart failure, history of asthma, history of hypothyroidism, diabetes mellitus, GERD presented to the ED for the evaluation of worsening shortness of breath and productive cough. Patient mentioned that she has a baseline productive cough with clear phlegm for many years but for the last 3-4 days she she felt more congested, coughing a lot , bringing up more phlegm. Also she has been having shortness of breath without any chest discomfort or palpitations sweating. Patient has a history of asthma stopped taking Symbicort about 9-10 months ago by herself(for unexplained/ unknown reasons). She is not taking any rescue inhalers at home as well, not on any oxygen, never been intubated for asthma. In the morning, when patient went for grocery she felt really weak /Lethargic, dizzy and short of breath and went to urgent care. After evaluation urgent care physician insisted the patient to go to ER but patient refused and drove back home, but patient's symptoms never improved and ultimately was brought into the ER for further assessment. Patient denied any recent illnesses fever or chills, received her flu shot this season. Denies any nausea vomiting abdominal discomfort.Has chest soreness likey due to coughing spells. She has a history of bilateral leg swelling right more than left from her underlying CHF(not getting any worse). She follows up with the warp doffer Dr. gongora and logistics planning manager at [facility]. Of the note, she mentioned above patient had a cardiac cath about 40 months ago in 2014 and had stent placed. She was on Brelinta, for a year, after stopping the medication patient developed chest pain syndrome again and had another cardiac cath in January 2016, that was clean however pacemaker was placed at the time. Patient has a history of long-standing nodules, told by her logistics planning manager at [facility], never been worked up. She never smoked and does not drink any alcohol Vitals on admission Temperature 99.0, pulse 94, respiratory 20, blood pressure 135/82 on 2 L. On examination: General Appearance:alert oriented 3 , not in acute distress Skin: Grossly normal HEENT: PERRLA Neck: Supple, No JVD Cardiovascular: Regular Rate, Normal S1, Normal S2. Lungs: Bilateral wheeze on exam Abdominal exam : Denies abdominal tenderness without any rebound with positive bowel sounds. Neurological: Grossly intact Pertinent labs on admission Normal WBC count H&H stable at 12.9/39, elevated blood glucose levels 359 hypomagnesemia 1.2 slight hyponatremia 136. Flu swab negative CTA chest:. No acute pulmonary embolism.Numerous pulmonary nodules some with suspicious features at the lung bases including the right middle lobe. Given the predominant basilar distribution these could represent metastatic pulmonary nodules Enlarged main pulmonary artery suggesting underlying pulmonary hypertension. Asymmetrically enlarged thyroid gland. Consider nonemergent thyroid ultrasound evaluation. VTE: negative Assessment and plan This is a 82-year-old woman with multiple comorbidities including coronary artery disease status post stent 2015, hypertension and hyperlipidemia, history of atrial fibrillation, asthma currently not on any long and short-acting inhalers ,history of diabetes mellitus hypothyroidism presented for evaluation of worsening shortness of breath with cough. On the basis of her history(stopped long and short-acting inhalers) along with the lung examination(bilateral wheeze) and hypoxia, will treat her as for asthma exacerbation. With hypoxia and history of recent cardiac cath we will do serial troponin EKG to rule out any underlying ACS. Problem list Acute hypoxic respiratory failure due to asthma exacerbation(due to noncompliance) Hypoxia with chest soreness(history of recent cardiac cath, coronary artery disease status post stents 2014) History of lung nodules(metastatic?) Hypomagnesemia History of CHF History of hypertension and hyperlipidemia History of diabetes mellitus History of hypothyroidism Plan Acute hypoxic respiratory failure due to asthma exacerbation(due to noncompliance) * Admit the patient GenMed floor * Continue with IV Solu-Medrol 40 mg every 8. * Restart Symbicort, * TRC nebs * Check peak flows * Continue oxygen to keep saturation around 92%. * Watch for any hemodynamic instability. Chest pain/hypoxia with non specific ekg changes -musculoskeletal (history of recent cardiac cath, coronary artery disease status post stents 2014) * We'll do serial troponin and EKG to rule out an underlying ACS, due to significant cardiac history. * Dr. Salazar already evaluated the patient. History of lung nodules(metastatic?) * Patient has a history of long-standing nodules, told by her logistics planning manager at [facility], never been worked up-as per patient * Please obtain more information in the morning and get records from [facility] Hypomagnesemia * Mag level I.2 * Give 2 g of IV medication sulfate recheck to mention levels. History of atrial fibrillation not on any anticoagulation due to to GI bleed * Continue Cardizem. History of CHF * Continue home medications including valsartan, and Lasix History of hypertension and hyperlipidemia * Continue all medications. History of diabetes mellitus * Levemir 14 units subcutaneous at bedtime * Hold hypoglycemics start the patient on NovoLog sliding scale with Accu-Cheks. History of hyperthyroidism: * Continue methimazole. DVT prophylaxis with subcutaneous Lovenox Mild to moderate pain control with tylenol Patient is full code. Norris RAND, [facility] 07/07/17 0029: Attending MD Review Statement Attending Statement Attending MD Statement: examined this patient, discuss w/resident/PA/FLOOR POLISHER, agreed w/resident/PA/FLOOR POLISHER, reviewed images, amended to note Attending Assessment/Plan: 82 yo F who mainly follows at [facility], has a h/o CAD s/p LAD stent (most recent cath in Jan 2017- patent coronaries), s/p PPM, HTN, CHF, asthma, hyperthyroidism , T2DM, Afib not on AC due to GI bleed, is here for evaluation of worsening exertional dyspnea and productive cough for the past 3-4 days associated with chills. Patient was at [employer] this morning, when she suddenly felt weak, short of breath and wheezy, to the point that she was unable to lift up her shopping bags. She drove down to the Urgent Care center and was advised to come to the ER. However, she drove home and her son then brought her to [place] ER. Patient reports coughing too hard in the past few days which resulted in chest soreness, she states this is not similar to her previous cardiac chest pain. Patient has h/o asthma and ran out of her symbicort for past 9 months. She forgot to get it refilled. She is not on any rescue inhaler. She received her flu vaccine but has never received pneumonia vaccine. Denies sick contacts recently. She also reports 2 day h /o nonbloody diarrhea 2-3 episodes per day, without abdominal discomfort or nausea/ vomiting. She is unclear about her h/o colonoscopy/EGD. Vitals stable, except on ambulation, patient dropped her O2 sats to 88-89% on RA. Chest b/l reduced air entry with scattered expiratory wheeze+. Labs unremarkable except for glucose 359, Mag 1.2, trop neg. Digoxin 0.8. CXR: mild left mid lung field scar/subsegmental atelectasis, peripheral right mid lung pulmonary nodules possibly calcified granulomas, no focal infiltrate or CHF. CTA chest: no PE, numerous pulmonary nodules possible metastatic, enlarged main pulmonary artery pulmonary hypertension, enlarged thyroid gland. EKG: SR/ ?Afib (baseline artifact), intermittently paced, ST depression with TWI in inferior leads and V3-6 (no old EKG to compare). Assessment and plan: 1. Acute hypoxic respiratory failure 2. Asthma exacerbation in the setting of bronchitis 3. Chest pain likely musculoskeletal 4. Hypomagnesemia 5. Lung nodules patient is aware of these but has not been worked up (? metastatic) 6. Hyperthyroidism 7. Diarrhea possibly viral etiology - Admit to general medicine - [facility] nebs - IV solumedrol 40mg BID followed by rapid prednisone taper - Initiate symbicort - No need for antibiotics - Check ambulatory sats in AM - Serial EKG and troponin - Obtain records from Pulm specialist and Fire Loss Prevention Engineer - Dr. Schroeder seen in ER, EKG changes are probably old. - I tried to obtain collateral information from Son Anurag De La Torre ([phone]) but he did not answer the phone call. - Discuss plan for further work up of lung nodules - Consult Pulm in AM - Replete electrolytes to keep Mag > 2.0 amd K > 4.0 - Patient appears euvolemic, no need for IV fluids - Check TSH, free T4. - Resume home meds lasix, valsartan, aspirin, cardizem, digoxin, methimazole, statin and levemir - Hold Janumet and glimepiride - At baseline ambulates with a cane, obtain PT eval. DVT ppx Lovenox. Full code.
--- NOTE | 2017-07-06 19:57 | CT SCAN REPORT ---
EXAMINATION: CT ANGIOGRAM OF THE CHEST WITH AND WITHOUT CONTRAST (CT PULMONARY ANGIOGRAM FOR PE) CLINICAL INFORMATION: Reason for Study:
Presumptive Dx: RO PE
Signs Symptoms: HYPOXIA, CP
COMPARISON: Same day chest x-ray TECHNIQUE: Prior to contrast administration, noncontrast localization images were obtained. Subsequently, multidetector volumetric imaging was performed from the thoracic inlet to below the diaphragms following the administration of 79 mL Optiray 320 intravenous contrast. No contrast reaction reported. Sagittal, coronal, and MIP oblique sagittal reformatted images were obtained on the CT workstation, uploaded to PACS, and reviewed. Total exam dose-length product 497 mGy-cm. FINDINGS: QUALITY OF STUDY/CONTRAST BOLUS: Satisfactory PULMONARY ARTERIES: No central or segmental pulmonary emboli. THORACIC AORTA: No aneurysm or dissection. LUNG: Pulmonary nodule within the right middle lobe measures 0.7 cm in size (image 288, series 2). There are numerous pulmonary nodules at the left lung base. For example, pulmonary nodule measures 0.6 cm and demonstrates mild spiculation (image 335, series 2). No significant pulmonary nodules are noted in the superior segment of left lower lobe or within the left upper lobe. The right upper lobe appears relatively spared as well. A few tiny 2 mm pulmonary nodules are noted anteriorly. There are calcified granulomas present in the right lower lobe. In addition, there are a few scattered pulmonary nodules measuring less than 4 mm. PLEURA: No pleural effusion or pneumothorax. MEDIASTINUM: The right lobe of the thyroid gland is significantly enlarged and extends inferiorly into the right upper paratracheal space. The main pulmonary artery is enlarged measuring 3.6 cm. Normal heart size. No pericardial effusion. No hilar or mediastinal lymphadenopathy. No evidence of septal bowing or right heart strain. CHEST WALL/AXILLA: No axillary or internal mammary lymphadenopathy. OSSEOUS STRUCTURES: No suspicious lytic or blastic lesion. Diffuse idiopathic skeletal hyperostosis of the midthoracic spine. UPPER ABDOMEN: Scattered hypoattenuating lesions within the liver, partially imaged, are most consistent with cysts. Small hiatal hernia. No reflux of contrast into the hepatic veins to suggest elevated right heart pressures. IMPRESSION: 1. No acute pulmonary embolism. 2. Numerous pulmonary nodules some with suspicious features at the lung bases including the right middle lobe. Given the predominant basilar distribution these could represent metastatic pulmonary nodules. 3. Enlarged main pulmonary artery suggesting underlying pulmonary hypertension. 4. Asymmetrically enlarged thyroid gland. Consider nonemergent thyroid ultrasound evaluation. VTE: negative Various management parameters for solitary pulmonary nodules are in the literature. According to the Fleischner Society, recommendations for pulmonary nodules are as follows: Nodule size < or = to 4 mm in LOW RISK PATIENTS: No follow up needed. Nodule size < or = to 4 mm in HIGH RISK PATIENTS: Follow up CT at 12 months; if unchanged, no further follow up. Nodule size > 4-6 mm in LOW RISK PATIENTS: Follow up CT at 12 months; if unchanged, no further follow up. Nodule size > 4-6 mm in HIGH RISK PATIENTS: Initial follow up CT at 6-12 months, then at 18-24 months if no change. Nodule size > 6-8 mm in LOW RISK PATIENTS: Initial follow up CT at 6-12 months, then at 18-24 months if no change. Nodule size > 6-8 mm in HIGH RISK PATIENTS: Initial follow up CT at 3-6 months, then 9-12 months and 24 months if no change. Nodule size > 8 mm in LOW RISK PATIENTS: Follow up CT at around 3, 9, and 24 months, dynamic contrast-enhanced CT, PET, and/or biopsy. Nodule size > 8 mm in HIGH RISK PATIENTS: Same as for low-risk patients.
--- NOTE | 2017-07-06 20:16 | Admission Certification ---
Admission Certification Certification Statement - As attending physician, I certify that at the time of - admission, based on clinical presentation, severity of - symptoms, need for further diagnostic testing and - therapeutic interventions, and risk of adverse outcomes - without in-hospital treatment, in my clinical assessment, - this patient requires an acute hospital stay for a minimum - of two nights or longer. I have also considered psychsocial - factors such as support system, advanced age, financial - issues, cognitive issues, and failed out-patient treatments, - past re-admission history, safety of patient, and lack of - compliance as applicable. Specific rationale supporting this admission is: Acute hypoxic respiratory failure, bronchitis, asthma exacerbation, lung nodules.
[2017-07-06 23:54] VITALS: BP 149/68
[2017-07-07 06:00] VITALS: BP 104/70
[2017-07-07 08:32] LABS: ABSOLUTE BASOPHIL COUNT 0 /CUMM (0.0-0.2); ABSOLUTE EOSINOPHIL COUNT 0 /CUMM (0.0-0.7); ABSOLUTE GRANULOCYTE CT 2.9 /CUMM (1.4-6.5); ABSOLUTE LYMPH COUNT 0.4 /CUMM (1.2-3.4); ABSOLUTE MONOCYTE COUNT 0.2 /CUMM (0.10-0.60); BASOPHIL % 0.1 % (0.0-2.0); EOSINOPHIL % 0 % (0-5); GRANULOCYTE % 82.3 % (42.2-75.2); MEAN CORPUSCULAR HGB 30.6 PG (27.0-31.0); MEAN CORPUSCULAR HGB CONC 33.3 G/DL (33.0-37.0); MEAN CORPUSCULAR VOLUME 91.8 FL (81.0-99.0); MEAN PLATELET VOLUME 8.9 FL (7.4-10.4); PLATELET COUNT 185 /CUMM (130-400); RBC DISTRIBUTION WIDTH 14.3 % (11.5-14.5); RED BLOOD CELL CT 4.25 /CUMM (4.20-5.40); WHITE BLOOD CELL COUNT 3.6 /CUMM (4.8-10.8)
[2017-07-07 09:40] VITALS: BP 108/58
--- NOTE | 2017-07-07 09:58 | PN- Housestaff ---
Chaim RAND,[facility] 07/07/17 0958: Subjective Follow-up For: asthma eklg changes lung nodules Subjective: No acute events overnight. Chills. Feels better already. Review of Systems Constitutional: Reports: chills. Cardiovascular: Reports: no symptoms. Respiratory: Reports: short of breath. Gastrointestinal: Reports: no symptoms. Genitourinary: Reports: no symptoms. Musculoskeletal: Reports: no symptoms. Objective Last 24 Hrs of Vital Signs/I&O Vital Signs Date Time Temp Pulse Resp B/P B/P Pulse O2 O2 Flow FiO2 Mean Ox Delivery Rate 07/07 2213 97.7 65 20 120/60 95 Nasal Cannula 07/07 1850 96 Nasal 2.0L Cannula 07/07 1515 98.0 64 20 126/60 96 Nasal 2.0L Cannula 07/07 1115 66 118/64 07/07 1030 62 108/58 07/07 1003 93 Nasal 2.0L Cannula 07/07 0940 62 108/58 07/07 0911 Nasal 2.0L Cannula 07/07 0600 97.1 50 24 104/70 92 Nasal 2.0L Cannula 07/07 0000 Nasal 2.0L Cannula Intake & Output 07/07 1600 07/07 0800 07/07 0000 Intake Total 1000 200 0 Output Total Balance 1000 200 0 Intake, IV 100 Intake, Oral 1000 100 0 Patient 183 lb 190 lb Weight Weight Reported by Patient Measurement Method Physical Exam General Appearance: Alert Skin: no leg swelling Cardiovascular: Regular Rate, Normal S1, Normal S2 Lungs: decrease air movement diffusely Abdomen: Normal Bowel Sounds, Soft, No Tenderness Vascular: 2+ radial Current Medications: Current Medications Sig/Bere Start time Last Medication Dose Route Stop Time Status Admin Acetaminophen 650 MG .STK-MED ONE 07/07 0013 DC PO 07/07 0014 Acetaminophen 650 MG Q6P PRN 07/06 2345 AC 07/07 PO 0013 Acetaminophen 1,000 MG Q6P PRN 07/06 2345 AC IV Albuterol Sulfate 3 ML BID 07/07 1000 DC 07/07 INH 1850 Aspirin Buffered 81 MG DAILY 07/07 1000 AC 07/07 PO 1018 Atorvastatin Calcium 20 MG 1700 07/07 1700 AC 07/07 PO 2103 Azithromycin 250 MG DAILY 07/07 1535 AC 07/07 PO 1714 Budesonide/ 2 PUF BID 07/06 2200 AC 07/07 Formoterol Fumarate INH 2103 Digoxin 0.125 MG DAILY 07/07 1000 AC 07/07 PO 1030 Diltiazem HCl 240 MG QAM 07/07 1000 AC 07/07 PO 1112 Enoxaparin Sodium 40 MG DAILY 07/07 1000 AC 07/07 SC 1018 Furosemide 60 MG 0700,1700 07/07 1700 CAN PO Furosemide 160 MG 0700,1700 07/07 0830 DC PO Furosemide 160 MG BID 07/06 2200 DC 07/06 PO 2345 Insulin Aspart 0 TIDAC/HS 07/07 0800 AC 07/07 SC 2105 Insulin Detemir 14 UNITS QPM 07/07 2200 AC 07/07 SC 2105 Ipratropium [place] 2.5 ML Q4P PRN 07/07 1915 AC INH Latanoprost 1 GTT QPM 07/06 2200 AC 07/07 OPH 2104 Losartan Potassium 50 MG DAILY 07/07 1000 AC 07/07 PO 1432 Magnesium Sulfate 1 GM ONCE ONE 07/06 2000 DC 07/06 Dextrose/Water 100 ML IV 07/06 2359 2345 Methimazole 5 MG DAILY 07/07 1000 AC 07/07 PO 1018 Methylprednisolone 40 MG Q12 07/07 1000 DC 07/07 IV 1018 Omeprazole 20 MG DAILY 07/07 1000 AC 07/07 PO 1018 Prednisone 20 MG ONCE ONE 07/08 0800 AC PO 07/08 0801 Last 24 Hrs of Lab/Oli Results Last 24 Hrs of Labs/Mics: Laboratory Tests 07/07/17 0730: Anion Gap 10, Estimated GFR > 60, BUN/Creatinine Ratio 25.0, Magnesium 1.6, Troponin I < 0.01, CBC w Diff NO MAN DIFF REQ, RBC 4.25, MCV 91.8, MCH 30.6, RDW 14.3, MPV 8.9, Gran % 82.3 H, Lymphocytes % 11.3 L, Monocytes % 6.3, Eosinophils % 0, Basophils % 0.1, Absolute Granulocytes 2.9, Absolute Lymphocytes 0.4 L, Absolute Monocytes 0.2, Absolute Eosinophils 0, Absolute Basophils 0, PUBS MCHC 33.3 07/07/17 0619: Magnesium Cancelled 07/07/17 0145: Troponin I < 0.01, TSH 0.050 L, Free T4 1.38 Assessment/Plan Assessment: This is a 82-year-old woman with multiple comorbidities including coronary artery disease status post stent 2015, hypertension and hyperlipidemia, history of atrial fibrillation, asthma currently not on any long and short-acting inhalers ,history of diabetes mellitus hypothyroidism presented for evaluation of worsening shortness of breath with cough. Plan: #history of SVT Pt has multiple admission to [facility] for SVT States near syncope before admission -transferred to [facility] for further conveyor monitor #Acute hypoxic respiratory failure due to asthma exacerbation(due to noncompliance) CTA negative for PE CXR: 1. There is mild left mid lung field scar/subsegmental atelectasis. 2. There are peripheral right mid lung field pulmonary nodules, possibly calcified granulomas. In the absence of outside comparison radiographs documenting long-term stability, consider further evaluation with CT. 3. No focal infiltrate or congestive heart failure is seen. -dc IV steroids, start prednisomne 20 in am -Restart Symbicort, -po azithro for bronchitis -Nebs if only wheezing with ipratropium and avoid albuterol -holding lasix today -wean off O2 as tolerated #Chest pain/hypoxia with non specific ekg changes -musculoskeletal (history of recent cardiac cath, coronary artery disease status post stents 2014) Trops <.01x3 -f/u cardcs recs #History of lung nodules - chronic and stable Patient has a history of long-standing nodules, told by her violin tutor at [place], never been worked up-as per patient Reviewed info with pulm (Dr. Moses) -appears to be chronic and stable #Hypomagnesemia -monitor and replete #History of atrial fibrillation not on any anticoagulation due to to GI bleed -Continue Cardizem. #History of CHF -Continue home medications including valsartan, and Lasix #History of hypertension and hyperlipidemia -continue home medicaitons #History of diabetes mellitus Levemir 14 units subcutaneous at bedtime -Hold hypoglycemics start the patient on NovoLog sliding scale with Accu-Cheks. #History of hyperthyroidism: -Continue methimazole. DVT prophylaxis with subcutaneous Lovenox Mild to moderate pain control with tylenol Patient is full code. Problem List: 1. Hypomagnesemia 2. Asthmatic bronchitis 3. Personal history of supraventricular tachycardia Pain Ratin Pain Location: none Pain Goal: Pain 4 or less Pain Plan: none Tomorrow's Labs & Rationales: cbc bep mg Nadira RAND,Amir 07/07/17 1031: Attending MD Review Statement Attending Statement Attending MD Statement: examined this patient, discuss w/resident/PA/PEPPER CUTTER, agreed w/resident/PA/PEPPER CUTTER, reviewed EMR data (avail), discussed with nursing Attending Assessment/Plan: Pt was admitted overnight. Reports wasn't taking her spiriva at home. Reportedly saw a Pulm but doesn't remember the name. Not on home O2. Pt not aware of any previous cancer h/o + scattered wheezes -- cont to treat symptomatically for asthma exacerbation -- check med reconcilliation -- review/request Epic records from [facility] -- rest of the plan as per resident's note
[2017-07-07 11:15] VITALS: BP 118/64
--- NOTE | 2017-07-07 14:00 | Cons- Pulmonary ---
General Information and HPI Consulting Request Date of Consult: 07/07/17 Requested By: med team History of Present Illness: Ms. De La Torre is an 82-year-old lady with past medical history significant for coronary artery disease status post stent placement, atrial fibrillation(not on anticoagulation), hypertension, hyperlipidemia, CHF, diabetes, hypothyroidism and asthma presents with worsening cough with sputum production for the past 3-4 days. According to the patient, she has chronic productive cough with clear/frothy sputum for years but it recently got worse with increased sputum production, shortness of breath and wheezing for the past 3-4 days. She went to [employer] this morning to get herself some stuff where she felt extremely short of breath, weak and lightheaded, was sent to the urgent care clinic, who referred her to the [facility] for further evaluation. Shortness of breath is worse especially when lying down. Also reports chest soreness with cough but denies any chest pain, palpitations, nausea, vomiting or diaphoresis. She has received her flu shot this year, denies any fever/chills, sick contacts, recent travel or any new -onset rash. Also reports abdominal discomfort with diarrhea since yesterday( had one episode of loose stools yesterday and 1 episode today) but denies any blood in the stools. Patient has not been taking her Symbicort for the past 9 months and has not followed up with her baker. Denies any previous hospitalizations for asthma exacerbation or history of intubation. No previous history of sig asthma Allergies/Medications Allergies: Coded Allergies: Sulfa (Sulfonamide Antibiotics) (Mild, RASH, ITCHING 07/06/17) Penicillins (RASH 07/06/17) Home Med List: Acetaminophen (Tylenol Extra Strength) 500 MG TABLET 1 TAB PO BID PAIN ( Reported) Aspirin (Ecotrin*) 81 MG TABLET.DR 1 TAB PO DAILY HEART/BLOOD (Reported) Atorvastatin Calcium 20 MG TABLET 1 TAB PO DAILY CHOLESTEROL (Reported) Digoxin 125 MCG TABLET 1 TAB PO DAILY HEART (Reported) Diltiazem HCl (Cardizem Cd) 240 MG CAP.ER.24H 1 CAP PO QAM HEART/BP (Reported ) Furosemide 40 MG TABLET 160 MG PO BID DIURETIC (Reported) Glimepiride 1 MG TABLET 1 TAB PO BID DM (Reported) Insulin Detemir (Levemir Flextouch) 100 UNIT/ML (3 ML) INSULN.PEN 14 UNITS SC QPM DM (Reported) Latanoprost 0.005 % DROPS 1 GTT OU QPM BOTH EYES (Reported) Methimazole 5 MG TABLET 1 TAB PO DAILY THYROID (Reported) Omeprazole 20 MG CAPSULE.DR 1 CAP PO DAILY GI (Reported) Sennosides (Senna) 8.6 MG TABLET 1 TAB PO BID GI (Reported) Sitagliptin Phos/Metformin HCl (Janumet 50-1,000 MG Tablet) 50 MG-1,000 MG TABLET 1 TAB PO BID DM (Reported) Valsartan 160 MG TABLET 1 TAB PO DAILY BP (Reported) Review of Systems Review of Systems Constitutional: Reports: see HPI. Comments Review of Systems Constitutional: Reports: weakness. EENTM: Reports: no symptoms. Cardiovascular: Reports: no symptoms. Respiratory: Reports: cough, short of breath, sputum production, wheezing. GI: Reports: diarrhea. Genitourinary: Reports: no symptoms. Musculoskeletal: Reports: joint pain, neck pain. Skin: Reports: no symptoms. Neurological/Psychological: Reports: no symptoms. Hematologic/Endocrine: Reports: no symptoms. Immunologic/Allergic: Reports: no symptoms. 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 Home Who Do You Live With? self Services at Home: None Primary Language: Panamanian Smoking Status: Never Smoked ETOH Use: denies use Illicit Drug Use: denies illicit drug use Functional Ability ADLs Independent: dressing, eating, toileting, bathing. Exam & Diagnostic Data Last 24 Hrs of Vital Signs/I&O Vital Signs Date Time Temp Pulse Resp B/P B/P Pulse O2 O2 Flow FiO2 Mean Ox Delivery Rate 07/07 1115 66 118/64 07/07 1030 62 108/58 07/07 1003 93 Nasal 2.0L Cannula 07/07 0940 62 108/58 07/07 0911 Nasal 2.0L Cannula 07/07 0600 97.1 50 24 104/70 92 Nasal 2.0L Cannula 07/07 0000 Nasal 2.0L Cannula 07/06 2354 98.3 85 20 149/68 98 Nasal 2.0L Cannula 07/06 2211 Nasal 2.0L Cannula 07/06 2029 93 18 146/65 97 Nasal 2.0L Cannula 07/06 1809 98.8 93 18 146/65 96 Nasal 2.0L Cannula 07/06 1633 89 07/06 1555 99.0 94 20 175/82 94 Room Air Intake & Output 07/07 1600 07/07 0800 07/07 0000 Intake Total 200 0 Output Total Balance 200 0 Intake, IV 100 Intake, Oral 100 0 Patient 183 lb 190 lb Weight Weight Reported by Patient Measurement Method Last 48 Hrs of Labs/Oli: Laboratory Tests 07/07/17 0730: Anion Gap 10, Estimated GFR > 60, BUN/Creatinine Ratio 25.0, Magnesium 1.6, Troponin I < 0.01, CBC w Diff NO MAN DIFF REQ, RBC 4.25, MCV 91.8, MCH 30.6, RDW 14.3, MPV 8.9, Gran % 82.3 H, Lymphocytes % 11.3 L, Monocytes % 6.3, Eosinophils % 0, Basophils % 0.1, Absolute Granulocytes 2.9, Absolute Lymphocytes 0.4 L, Absolute Monocytes 0.2, Absolute Eosinophils 0, Absolute Basophils 0, PUBS MCHC 33.3 07/07/17 0619: Magnesium Cancelled 07/07/17 0145: Troponin I < 0.01, TSH 0.050 L, Free T4 1.38 07/06/17 1700: Anion Gap 13, Estimated GFR > 60, BUN/Creatinine Ratio 20.0, Glucose 359 H, Calcium 9.2, Magnesium 1.2 L, Total Bilirubin 0.9, AST 30, ALT 48, Alkaline Phosphatase 91, Troponin I < 0.01, Total Protein 6.7, Albumin 3.8, Globulin 2.9, Albumin/Globulin Ratio 1.3, APTT 28, Digoxin 0.8 07/06/17 1615: CBC w Diff NO MAN DIFF REQ, RBC 4.31, MCV 90.6, MCH 30.0, RDW 14.7 H, MPV 8.5, Gran % 78.7 H, Lymphocytes % 9.6 L, Monocytes % 11.2 H, Eosinophils % 0.2, Basophils % 0.3, Absolute Granulocytes 4.7, Absolute Lymphocytes 0.6 L, Absolute Monocytes 0.7 H, Absolute Eosinophils 0, Absolute Basophils 0, PUBS MCHC 33.1 Microbiology 07/06 1625 NASOPHARYN: Influenza Virus A & B Rapid Smear - COMP Assessment/Plan Impression/Plan: ct chest reviewed IMPRESSION: 1. No acute pulmonary embolism. 2. Numerous pulmonary nodules some with suspicious features at the lung bases including the right middle lobe. Given the predominant basilar distribution these could represent metastatic pulmonary nodules. 3. Enlarged main pulmonary artery suggesting underlying pulmonary hypertension. 4. Asymmetrically enlarged thyroid gland. Consider nonemergent thyroid ultrasound evaluation. VTE: negative Physical Exam General Appearance Alert, Oriented X3, Cooperative, No Acute Distress Skin No Rashes, No Breakdown HEENT Atraumatic, PERRLA, EOMI, Mucous Membr. moist/pink Neck Supple, No JVD, No thryomegaly Cardiovascular Regular Rate, Normal S1, Normal S2 Lungs Wheezing on Bilateral Lung hollins Abdomen Normal Bowel Sounds, Soft, No Tenderness Extremities No Clubbing, No Cyanosis, Normal Pulses, +2 pitting edema bilaterally, Chronic venous stasis changes IMPRESSION This is a 82-year-old woman with multiple comorbidities including coronary artery disease status post stent 2014, hypertension and hyperlipidemia, history of atrial fibrillation, asthma currently not on any long and short-acting inhalers ,history of diabetes mellitus hyperthyroidism presented for evaluation of worsening shortness of breath with cough. Most of her symtoms of dizziness was acute onset ISSUES * Sudden onset dizziness and near syncope in a pt with previous history of recurrent svt, with mild chest pain syndrome now better * History of mild asthma on occ inhalers now with a cough and mild bronchitis * Multiple lung nodules which appears chronic and no sig change from her previous ct consistant with prior granuloma * CAD with LAD [place] with recent angio showing nonobstructive cad * pafib with ppm with recurrent svt episodes complicated by hyperthyroidism * Electrolyte imbalnce * Diastolic heart on lasix 60 mg (not 160mg bid) REC * DC IV sterois and give prednisone 20 mg in am * po azithro for bronchitis * NEbs if only wheezing with ipratropium and avoid albuterol * Hold lasix today * Agg replacement of potassium and mag * Cont methimazole and may need dose to be adjusted * Cont othrer meds * Watch for svt * Ambulate and wean off oxygen Consult Acknowledgment - Thank you for your consult request.
[2017-07-07 15:15] VITALS: BP 126/60
[2017-07-07 22:13] VITALS: BP 120/60
[2017-07-08 06:20] VITALS: BP 124/66
--- NOTE | 2017-07-08 07:19 | PN- Housestaff ---
See Addendum Subjective Follow-up For: Bronchitis Tele-Events Since Last Visit: Afib, 50-80 Subjective: No overnight events. She has some mild SOB and is still coughing with sputum but it is improving. No further chest pain. She thinks the CP was related to the coughing. She also mentioned she would like to know the name of a PCP because her family doc retired. No other complaints. Review of Systems Constitutional: Reports: no symptoms. EENTM: Reports: no symptoms. Cardiovascular: Reports: no symptoms. Respiratory: Reports: see HPI. Gastrointestinal: Reports: no symptoms. Genitourinary: Reports: no symptoms. Musculoskeletal: Reports: no symptoms. Skin: Reports: no symptoms. Neurological/Psychological: Reports: no symptoms. Hematologic/Endocrine: Reports: no symptoms. Immunologic/Allergic: Reports: no symptoms. Objective Last 24 Hrs of Vital Signs/I&O Vital Signs Date Time Temp Pulse Resp B/P B/P Pulse O2 O2 Flow FiO2 Mean Ox Delivery Rate 07/08 0620 97.9 63 20 124/66 95 Nasal 2.0L Cannula 07/08 0000 Nasal 2.0L Cannula 07/07 2213 97.7 65 20 120/60 95 Nasal Cannula 07/07 1850 96 Nasal 2.0L Cannula 07/07 1515 98.0 64 20 126/60 96 Nasal 2.0L Cannula 07/07 1115 66 118/64 07/07 1030 62 108/58 07/07 1003 93 Nasal 2.0L Cannula 07/07 0940 62 108/58 07/07 0911 Nasal 2.0L Cannula Intake & Output 07/08 0800 07/08 0000 07/07 1600 Intake Total 60 240 1000 Output Total 300 400 Balance -240 -160 1000 Intake, Oral 60 240 1000 Output, Urine 300 400 Physical Exam General Appearance: Alert, Oriented X3, Cooperative, No Acute Distress Skin: No Rashes, No Breakdown Cardiovascular: irregular Lungs: Clear to Auscultation Abdomen: Normal Bowel Sounds, Soft, mildly tender Neurological: Normal Speech Extremities: No Edema, Normal Pulses, No Tenderness/Swelling Current Medications: Current Medications Sig/Bere Start time Last Medication Dose Route Stop Time Status Admin Acetaminophen 650 MG Q6P PRN 07/06 2345 AC 07/07 PO 0013 Acetaminophen 1,000 MG Q6P PRN 01/13 2345 AC IV Albuterol Sulfate 3 ML BID 07/07 1000 DC 07/07 INH 1850 Aspirin Buffered 81 MG DAILY 07/07 1000 AC 07/07 PO 1018 Atorvastatin Calcium 20 MG 1700 07/07 1700 AC 07/07 PO 2103 Azithromycin 250 MG DAILY 07/07 1535 AC 07/07 PO 1714 Budesonide/ 2 PUF BID 07/06 2200 AC 07/07 Formoterol Fumarate INH 2103 Digoxin 0.125 MG DAILY 07/07 1000 AC 07/07 PO 1030 Diltiazem HCl 240 MG QAM 07/07 1000 AC 07/07 PO 1112 Enoxaparin Sodium 40 MG DAILY 07/07 1000 AC 07/07 SC 1018 Furosemide 60 MG 0700,1700 07/07 1700 CAN PO Furosemide 160 MG 0700,1700 07/07 0830 DC PO Furosemide 160 MG BID 07/06 2200 DC 07/06 PO 2345 Insulin Aspart 0 TIDAC/HS 07/07 0800 AC 07/07 SC 2105 Insulin Detemir 14 UNITS QPM 07/07 2200 AC 07/07 SC 2105 Ipratropium [place] 2.5 ML Q4P PRN 07/07 1915 AC INH Latanoprost 1 GTT QPM 07/06 2200 AC 07/07 OPH 2104 Losartan Potassium 50 MG DAILY 07/07 1000 AC 07/07 PO 1432 Methimazole 5 MG DAILY 07/07 1000 AC 07/07 PO 1018 Methylprednisolone 40 MG Q12 07/07 1000 DC 07/07 IV 1018 Omeprazole 20 MG DAILY 07/07 1000 AC 07/07 PO 1018 Prednisone 20 MG ONCE ONE 07/08 0800 AC PO 07/08 0801 Last 24 Hrs of Lab/Oli Results Last 24 Hrs of Labs/Mics: Laboratory Tests 07/08/17 0710: Sodium Pending, Potassium Pending, Chloride Pending, Carbon Dioxide Pending, Anion Gap Pending, BUN Pending, Creatinine Pending, BUN/Creatinine Ratio Pending , Magnesium Pending, CBC w Diff Pending, WBC Pending, RBC Pending, Hgb Pending, Hct Pending, MCV Pending, MCH Pending, RDW Pending, Plt Count Pending, MPV Pending, PUBS MCHC Pending, Digoxin Pending 07/07/17 0730: Anion Gap 10, Estimated GFR > 60, BUN/Creatinine Ratio 25.0, Magnesium 1.6, Troponin I < 0.01, CBC w Diff NO MAN DIFF REQ, RBC 4.25, MCV 91.8, MCH 30.6, RDW 14.3, MPV 8.9, Gran % 82.3 H, Lymphocytes % 11.3 L, Monocytes % 6.3, Eosinophils % 0, Basophils % 0.1, Absolute Granulocytes 2.9, Absolute Lymphocytes 0.4 L, Absolute Monocytes 0.2, Absolute Eosinophils 0, Absolute Basophils 0, PUBS MCHC 33.3 Assessment/Plan Assessment: This is a 82-year-old woman with multiple comorbidities including coronary artery disease status post stent 2014, hypertension and hyperlipidemia, history of atrial fibrillation, asthma currently not on any long and short-acting inhalers ,history of diabetes mellitus hyperthyroidism here with acute bronchitis. Problem list: 1. Acute bronchitis 2. Presyncope 3. History of SVT 4. Acute hypoxic respiratory failure 5. Hyperthyroidism 6. Chest pain syndrome #Acute bronchitis: Patient presented with respiratory failure but has improved. Pulmonology was consulted and think this is likely secondary to bronchitis more than asthma exacerbation. CTA was negative for pulmonary embolism and showed stable multiple lung nodules consistent with prior CT scan. -Appreciate pulmonology recommendations -Steroid taper -Holding furosemide -Electrolyte replenishment as needed -Wean oxygen -Continue azithromycin. Watch digoxin level. Switch to Moxifloxacin at discharge -[facility] eva #Presyncope: Patient presented with history of skin dizziness and presyncopal symptoms. She also has a history of SVT and multiple admissions at [place]. She was transferred to telemetry for cardiac monitoring because of this. She has had no events overnight. -Appreciate cardiology recommendations #Chest pain: Patient presented with complaints of chest pain with non specific ekg changes. Troponins and EKG 3 negative. This is most likely muscularskeletal. -Appreciate cardiology recommendations #Hyperthyroidism: Patient is on methimazole. TSH was 0.050, T4 [address] showed thyroid enlargement. -Continue methimazole #Chronic medical problems: Atrial fibrillation, CHF, hypertension, hyperlipidemia, diabetes mellitus -Continue Cardizem, valsartan, and Lasix, atorvastatin, omeprazole, losartan, Lantanoprost -Levemir 14 units subcutaneous at bedtime -Hold hypoglycemics -NovoLog sliding scale with Accu-Cheks. DVT prophylaxis with enoxaparin Consistent carbohydrate 1 diet Full code Problem List: 1. Asthmatic bronchitis Pain Ratin Pain Location: no pain Pain Goal: Remain pain free Pain Plan: see a/p Tomorrow's Labs & Rationales: none Mild to moderate pain control with tylenol Patient is full code.
--- NOTE | 2017-07-08 09:53 | PN- Pulmonary ---
Subjective HPI/Critical Care Issues: No overnight events. She has some mild SOB and is still coughing with sputum but it is improving. No further chest pain. She thinks the CP was related to the coughing. Review of Systems Constitutional: Reports: no symptoms. EENTM: Reports: no symptoms. Cardiovascular: Reports: no symptoms. Respiratory: Reports: see HPI. Gastrointestinal: Reports: no symptoms. Genitourinary: Reports: no symptoms. Musculoskeletal: Reports: no symptoms. Skin: Reports: no symptoms. Neurological/Psychological: Reports: no symptoms. Hematologic/Endocrine: Reports: no symptoms. Immunologic/Allergic: Reports: no symptoms. Objective Current Medications: Current Medications Sig/Bere Start time Last Medication Dose Route Stop Time Status Admin Acetaminophen 650 MG Q6P PRN 07/06 2345 AC 07/07 PO 0013 Acetaminophen 1,000 MG Q6P PRN 07/06 2345 AC IV Albuterol Sulfate 3 ML BID 07/07 1000 DC 07/07 INH 1850 Aspirin Buffered 81 MG DAILY 07/07 1000 AC 07/07 PO 1018 Atorvastatin Calcium 20 MG 1700 07/07 1700 AC 07/07 PO 2103 Azithromycin 250 MG DAILY 07/07 1535 AC 07/08 PO 0949 Budesonide/ 2 PUF BID 07/06 2200 AC 07/08 Formoterol Fumarate INH 0949 Digoxin 0.125 MG DAILY 07/07 1000 AC 07/07 PO 1030 Diltiazem HCl 240 MG QAM 07/07 1000 AC 07/07 PO 1112 Enoxaparin Sodium 40 MG DAILY 07/07 1000 AC 07/07 SC 1018 Furosemide 60 MG 0700,1700 07/07 1700 CAN PO Furosemide 160 MG 0700,1700 07/07 0830 DC PO Insulin Aspart 0 TIDAC/HS 07/07 0800 AC 07/08 SC 0800 Insulin Detemir 14 UNITS QPM 07/07 2200 AC 07/07 SC 2105 Ipratropium Standard 2.5 ML Q4P PRN 07/07 1915 AC INH Latanoprost 1 GTT QPM 07/06 2200 AC 07/07 OPH 2104 Losartan Potassium 50 MG DAILY 07/07 1000 AC 07/07 PO 1432 Magnesium Sulfate 1 GM Q2H 07/08 0930 AC Dextrose/Water 100 ML IV 07/08 1329 Methimazole 5 MG DAILY 07/07 1000 AC 07/07 PO 1018 Methylprednisolone 40 MG Q12 07/07 1000 DC 07/07 IV 1018 Omeprazole 20 MG DAILY 07/07 1000 AC 07/07 PO 1018 Prednisone 20 MG ONCE ONE 07/08 0800 DC 07/08 PO 07/08 0801 0800 Vital Signs & I&O Last 24 Hrs of Vitals and I&O: Vital Signs Date Time Temp Pulse Resp B/P B/P Pulse O2 O2 Flow FiO2 Mean Ox Delivery Rate 07/08 0620 97.9 63 20 124/66 95 Nasal 2.0L Cannula 07/08 0000 Nasal 2.0L Cannula 07/07 2213 97.7 65 20 120/60 95 Nasal Cannula 07/07 1850 96 Nasal 2.0L Cannula 07/07 1515 98.0 64 20 126/60 96 Nasal 2.0L Cannula 07/07 1115 66 118/64 07/07 1030 62 108/58 07/07 1003 93 Nasal 2.0L Cannula Intake & Output 07/08 1600 07/08 0800 07/08 0000 Intake Total 60 240 Output Total 300 400 Balance -240 -160 Intake, Oral 60 240 Output, Urine 300 400 Impression/Plan Impression/Plan Impression/Plan: ct chest reviewed IMPRESSION: 1. No acute pulmonary embolism. 2. Numerous pulmonary nodules some with suspicious features at the lung bases including the right middle lobe. Given the predominant basilar distribution these could represent metastatic pulmonary nodules. 3. Enlarged main pulmonary artery suggesting underlying pulmonary hypertension. 4. Asymmetrically enlarged thyroid gland. Consider nonemergent thyroid ultrasound evaluation. VTE: negative Physical Exam General Appearance Alert, Oriented X3, Cooperative, No Acute Distress Skin No Rashes, No Breakdown HEENT Atraumatic, PERRLA, EOMI, Mucous Membr. moist/pink Neck Supple, No JVD, No thryomegaly Cardiovascular Regular Rate, Normal S1, Normal S2 Lungs Wheezing on Bilateral Lung hollins Abdomen Normal Bowel Sounds, Soft, No Tenderness Extremities No Clubbing, No Cyanosis, Normal Pulses, +2 pitting edema bilaterally, Chronic venous stasis changes IMPRESSION This is a 82-year-old woman with multiple comorbidities including coronary artery disease status post stent 2014, hypertension and hyperlipidemia, history of atrial fibrillation, asthma currently not on any long and short-acting inhalers ,history of diabetes mellitus hyperthyroidism presented for evaluation of worsening shortness of breath with cough. Most of her symtoms of dizziness was acute onset ISSUES * Sudden onset dizziness and near syncope in a pt with previous history of recurrent svt, with mild chest pain syndrome now better * History of mild asthma on occ inhalers now with a cough and mild bronchitis * Multiple lung nodules which appears chronic and no sig change from her previous ct consistant with prior granuloma * CAD with LAD [place] with recent angio showing nonobstructive cad * pafib with ppm with recurrent svt episodes complicated by hyperthyroidism * Electrolyte imbalnce * Diastolic heart on lasix 60 mg (not 160mg bid) REC * Prednisone 20 mg for two days and 10 for 2 and dc * po azithro for bronchitis * NEbs if only wheezing with ipratropium and avoid albuterol * Resume diuresis * Agg replacement of potassium and mag * Cont methimazole and may need dose to be adjusted * Cont othrer meds * Watch for svt * Ambulate and wean off oxygen * Cont symbicort * Pt can be dcd soon if stable and can be off oxygen on room air at rest (ok to be dcd on room air if her excertional sat is more than 81 percent off oxygen, and her resting sat is more than 89)
[2017-07-08] MEDS ORDERED: FUROSEMIDE20 M1 PO (10:36)
--- NOTE | 2017-07-08 11:08 | PN- Cardiology ---
Subjective Subjective: The patient reports that she is feeling mostly well. Her shortness of breath is improving. She still has a significant cough. She has intermittent mild soreness in the chest associated with the coughing. No other chest pain. No syncope. No orthopnea. No lightheadedness or dizziness. No nausea or vomiting. No diaphoresis. kidney trimmer does not reveal significant arrhythmias. Objective Vital Signs and I&Os Vital Signs Date Time Temp Pulse Resp B/P B/P Pulse O2 O2 Flow FiO2 Mean Ox Delivery Rate 07/08 0620 97.9 63 20 124/66 95 Nasal 2.0L Cannula 07/08 0000 Nasal 2.0L Cannula 07/07 2213 97.7 65 20 120/60 95 Nasal Cannula 07/07 1850 96 Nasal 2.0L Cannula 07/07 1515 98.0 64 20 126/60 96 Nasal 2.0L Cannula 07/07 1115 66 118/64 Intake & Output 07/08 1600 07/08 0800 07/08 0000 07/07 1600 07/07 0800 07/07 0000 Intake Total 60 240 1000 200 0 Output Total 300 400 Balance -240 -160 1000 200 0 Intake, IV 100 Intake, Oral 60 240 1000 100 0 Output, Urine 300 400 Patient 183 lb 190 lb Weight Weight Reported by Patient Measurement Method Physical Exam: Gen: NAD HEENT: normal Lungs: clear to auscultation, normal resp. effort Heart: RRR, S1, S2, 1/6 systolic murmur Abdomen: Soft, nontender, no masses Extremities: 1+ edema of the lower extremities Neuro: Alert and oriented x 3, cranial nerves intact Current Medications: Current Medications Sig/Bere Start time Last Medication Dose Route Stop Time Status Admin Acetaminophen 650 MG Q6P PRN 07/06 2345 AC 07/07 PO 0013 Acetaminophen 1,000 MG Q6P PRN 07/06 2345 AC IV Albuterol Sulfate 3 ML BID 07/07 1000 DC 07/07 INH 1850 Aspirin Buffered 81 MG DAILY 07/07 1000 AC 07/07 PO 1018 Atorvastatin Calcium 20 MG 1700 07/07 1700 AC 07/07 PO 2103 Azithromycin 250 MG DAILY 07/07 1535 AC 07/08 PO 0949 Budesonide/ 2 PUF BID 07/06 2200 AC 07/08 Formoterol Fumarate INH 0949 Digoxin 0.125 MG DAILY 07/07 1000 AC 07/07 PO 1030 Diltiazem HCl 240 MG QAM 07/07 1000 AC 07/07 PO 1112 Enoxaparin Sodium 40 MG DAILY 07/07 1000 AC 07/07 SC 1018 Furosemide 60 MG 7:30 AM, & 4:30 PM 07/08 1630 AC PO Furosemide 60 MG 0700,1700 07/07 1700 CAN PO Furosemide 160 MG 0700,1700 07/07 0830 DC PO Insulin Aspart 0 TIDAC/HS 07/07 0800 AC 07/08 SC 0800 Insulin Detemir 14 UNITS QPM 07/07 2200 AC 07/07 SC 2105 Ipratropium [place] 2.5 ML Q4P PRN 07/07 1915 AC INH Latanoprost 1 GTT QPM 07/06 2200 AC 07/07 OPH 2104 Losartan Potassium 50 MG DAILY 07/07 1000 AC 07/07 PO 1432 Magnesium Oxide 400 MG BID 07/08 1000 AC PO Magnesium Sulfate 1 GM Q2H 07/08 0930 DC Dextrose/Water 100 ML IV 07/08 1329 Methimazole 5 MG DAILY 07/07 1000 AC 07/07 PO 1018 Methylprednisolone 40 MG Q12 07/07 1000 DC 07/07 IV 1018 Omeprazole 20 MG DAILY 07/07 1000 AC 07/07 PO 1018 Prednisone 20 MG ONCE ONE 07/08 0800 DC 07/08 PO 07/08 0801 0800 Results Last 48 Hrs of Labs/Mics: Laboratory Tests 07/08/17 0710: Anion Gap 8, Estimated GFR > 60, BUN/Creatinine Ratio 34.0 H, Magnesium 1.6, WBC Pending, RBC Pending, Hgb Pending, Hct Pending, MCV Pending, MCH Pending, RDW Pending, Plt Count Pending, MPV Pending, PUBS MCHC Pending, Digoxin 0.7 L 07/07/17 0730: Anion Gap 10, Estimated GFR > 60, BUN/Creatinine Ratio 25.0, Magnesium 1.6, Troponin I < 0.01, CBC w Diff NO MAN DIFF REQ, RBC 4.25, MCV 91.8, MCH 30.6, RDW 14.3, MPV 8.9, Gran % 82.3 H, Lymphocytes % 11.3 L, Monocytes % 6.3, Eosinophils % 0, Basophils % 0.1, Absolute Granulocytes 2.9, Absolute Lymphocytes 0.4 L, Absolute Monocytes 0.2, Absolute Eosinophils 0, Absolute Basophils 0, PUBS MCHC 33.3 07/07/17 0619: Magnesium Cancelled 07/07/17 0145: Troponin I < 0.01, TSH 0.050 L, Free T4 1.38 07/06/17 1700: Anion Gap 13, Estimated GFR > 60, BUN/Creatinine Ratio 20.0, Glucose 359 H, Calcium 9.2, Magnesium 1.2 L, Total Bilirubin 0.9, AST 30, ALT 48, Alkaline Phosphatase 91, Troponin I < 0.01, Total Protein 6.7, Albumin 3.8, Globulin 2.9, Albumin/Globulin Ratio 1.3, APTT 28, Digoxin 0.8 07/06/17 1615: CBC w Diff NO MAN DIFF REQ, RBC 4.31, MCV 90.6, MCH 30.0, RDW 14.7 H, MPV 8.5, Gran % 78.7 H, Lymphocytes % 9.6 L, Monocytes % 11.2 H, Eosinophils % 0.2, Basophils % 0.3, Absolute Granulocytes 4.7, Absolute Lymphocytes 0.6 L, Absolute Monocytes 0.7 H, Absolute Eosinophils 0, Absolute Basophils 0, PUBS MCHC 33.1 Microbiology 07/06 1625 NASOPHARYN: Influenza Virus A & B Rapid Smear - COMP Recent Imaging Studies: CTA chest: 1. No acute pulmonary embolism. 2. Numerous pulmonary nodules some with suspicious features at the lung bases including the right middle lobe. Given the predominant basilar distribution these could represent metastatic pulmonary nodules. 3. Enlarged main pulmonary artery suggesting underlying pulmonary hypertension. 4. Asymmetrically enlarged thyroid gland. Consider nonemergent thyroid ultrasound evaluation. Assessment/Plan Assessment/Plan Assessment: 1. CAD, stable 2. Permanent pacemaker 3. Chest pain associated with coughing, likely noncardiac 4. Dizziness and near syncope on presentation, improved 5. Acute bronchitis 6. 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 Yes
[2017-07-08 11:47] LABS: ABSOLUTE BASOPHIL COUNT 0 /CUMM (0.0-0.2); ABSOLUTE EOSINOPHIL COUNT 0 /CUMM (0.0-0.7); ABSOLUTE GRANULOCYTE CT 5.2 /CUMM (1.4-6.5); ABSOLUTE MONOCYTE COUNT 0.8 /CUMM (0.10-0.60); BASOPHIL % 0.4 % (0.0-2.0); EOSINOPHIL % 0.1 % (0-5); HEMATOCRIT 38.7 % (37-47); MEAN CORPUSCULAR HGB 30.4 PG (27.0-31.0); MEAN CORPUSCULAR HGB CONC 33.4 G/DL (33.0-37.0); MEAN CORPUSCULAR VOLUME 91.2 FL (81.0-99.0); MEAN PLATELET VOLUME 9.1 FL (7.4-10.4); PLATELET COUNT 210 /CUMM (130-400); RBC DISTRIBUTION WIDTH 13.9 % (11.5-14.5); RED BLOOD CELL CT 4.24 /CUMM (4.20-5.40)
--- NOTE | 2017-07-08 13:03 | Patient Discharge Instructions ---
Discharge Instructions General Discharge Information You were seen/treated for: Acute bronchitis Watch for these problems: Fever, chills, chest pain, shortness of breath Special Instructions: Please take all medications as directed. Please follow-up with the primary care doctor, Dr. Hidalgo. Diet Continue normal diet: Yes Activity Full Activity/No Limits: Yes Acute Coronary Syndrome Inclusion Criteria At DC or during hospital stay patient has or had the following: ACS DIAGNOSIS No Discharge Core Measures Meds if any: Prescribed or Continued at Discharge Meds if any: NOT Prescribed or Continued at Discharge Congestive Heart Failure Inclusion Criteria At DC or during hospital stay patient has or had the following: CHF DIAGNOSIS No Discharge Core Measures Meds if any: Prescribed or Continued at Discharge Meds if any: NOT Prescribed or Continued at Discharge Cerebrovascular accident Inclusion Criteria At DC or during hospital stay patient has or had the following: CVA/TIA Diagnosis No Discharge Core Measures Meds if any: Prescribed or Continued at Discharge Meds if any: NOT Prescribed or Continued at Discharge Venous thromboembolism Inclusion Criteria VTE Diagnosis No VTE Type NONE VTE Confirmed by (Test) NONE Discharge Core Measures - Per Current guidelines, there needs to be overlap - treatment for the first 5 days of Warfarin therapy. - If discharged on Warfarin prior to 5 days of - overlap therapy, the patient will need to be - assessed for post discharge needs including - *Post discharge parental anticoagulation - *Warfarin and/or parental anticoagulation education - *Follow up date to check INR post discharge At least 5 days overlap therapy as Inpatient No Meds if any: Prescribed or Continued at Discharge Note: Overlap Therapy is Warfarin and Anticoagulant Meds if any: NOT Prescribed or Continued at Discharge
[2017-07-08] MEDS ORDERED: AVELOX400 M1 PO ×2 (13:05→13:16)
[2017-07-08] MEDS ORDERED: PREDNISONE20 M1 PO (13:16)
[2017-07-08] MEDS ORDERED: PREDNISONE10 M2 PO (13:16)
--- NOTE | 2017-07-08 13:34 | Discharge Summary ---
Visit Information Visit Dates Admission Date: 07/06/17 Discharge Date: 07/08/17 Hospital Course Course Attending Physician: Jaja RAND,Mary Ellen Root Primary Care Physician: Dr. Karthik Hidalgo Hospital Course: This is a 82-year-old woman with multiple comorbidities including coronary artery disease status post stent 2014, hypertension and hyperlipidemia, history of atrial fibrillation, asthma currently not on any long and short-acting inhalers ,history of diabetes mellitus, and hyperthyroidism who presented here with acute bronchitis. On presentation, vital signs were T 99.0, HR 94, RR 20, BP 175/82, saturating 94 % on room air. Laboratories were significant for WBC 6.0, hemoglobin 12.9, sodium 136, chloride 94, glucose 359, magnesium 1.2, normal LFTs, troponin less than 0.01, digoxin level 0.8. Chest x-ray revealed subsegmental atelectasis, stable pulmonary nodules, and no infiltrate. She was admitted to the [facility] initially and then transferred to telemetry for history of supraventricular tachycardia and treated for the following problems: 1. Acute bronchitis 2. Presyncope 3. History of SVT 4. Acute hypoxic respiratory failure 5. Hyperthyroidism 6. Chest pain syndrome #Acute bronchitis: Patient presented with respiratory failure but has improved. Pulmonology was consulted and think this is likely secondary to bronchitis more than asthma exacerbation. CTA was negative for pulmonary embolism and showed stable multiple lung nodules consistent with prior CT scan. Ambulatory saturation at the end of hospitalization resulted in no desaturation below 89% off of oxygen. She should continue the moxifloxacin and steroid taper. She should also follow up with her new primary care doctor, Dr. Hidalgo, that we are referring her to. She should continue her home furosemide 60 mg twice a day dose. #Presyncope: Patient presented with history of dizziness and presyncopal symptoms. She also has a history of SVT and multiple admissions at [place]. She was transferred to telemetry for cardiac monitoring because of this. She had no events on the monitor and no further episodes of presyncope. #Chest pain: Patient presented with complaints of chest pain with non specific ekg changes. Troponins and EKG 3 negative. This is most likely muscularskeletal. #Hyperthyroidism: Patient is on methimazole. TSH was 0.050, T4 [address] showed thyroid enlargement. She was continued on her methimazole. #Chronic medical problems: Atrial fibrillation, CHF, hypertension, hyperlipidemia, diabetes mellitus The following home medications were continued: Cardizem, valsartan, and Lasix, atorvastatin, omeprazole, losartan, Lantanoprost. Levemir 14 units subcutaneous at bedtime. Oral hypoglycemics were held. NovoLog sliding scale with Accu-Cheks. Allergies: Coded Allergies: Sulfa (Sulfonamide Antibiotics) (Mild, RASH, ITCHING 07/06/17) Penicillins (RASH 07/06/17) Disposition Summary Disposition Principal Diagnosis: 1. Acute bronchitis Additional Diagnosis: 2. Presyncope 3. History of SVT 4. Acute hypoxic respiratory failure 5. Hyperthyroidism 6. Chest pain syndrome Discharge Disposition: home or self care Discharge Instructions General Discharge Information Code Status: Full Code Patient's Diet: Heart healthy diet Patient's Activity: As tolerated Follow-Up Instructions/Appts: Please take all medications as directed. Please follow-up with primary care. Medications at Discharge Discharge Medications: Stop taking the following medications: Furosemide (Furosemide) 40 MG TABLET ORAL TWICE DAILY Qty = 270 Continue taking these medications: Aspirin (Ecotrin*) 81 MG TABLET.DR 1 Tablet ORAL DAILY Comments: Last Taken: 07/08/17 Time: 1000 AM Acetaminophen (Tylenol Extra Strength) 500 MG TABLET 1 Tablet ORAL TWICE DAILY Sennosides (Senna) 8.6 MG TABLET 1 Tablet ORAL TWICE DAILY Comments: Last Taken: NOT GIVEN IN HOSPITAL Time: Insulin Detemir (Levemir Flextouch) 100 UNIT/ML (3 ML) INSULN.PEN 14 Units Inject into fatty tissue Every night Qty = 15 Comments: Last Taken: 07/07/17 Time: 10 PM Latanoprost (Latanoprost) 0.005 % DROPS 1 Drop Both Eyes Every night Qty = 10 Comments: Last Taken: 07/07/17 Time: 10 PM Digoxin (Digoxin) 125 MCG TABLET 1 Tablet ORAL DAILY Qty = 90 Comments: Last Taken: 07/08/17 Time: 1000 AM Methimazole (Methimazole) 5 MG TABLET 1 Tablet ORAL DAILY Qty = 90 Comments: Last Taken: 07/08/17 Time: 0600 Glimepiride (Glimepiride) 1 MG TABLET 1 Tablet ORAL TWICE DAILY Qty = 180 Comments: Last Taken: NOT GIVEN IN HOSPITAL Time: Atorvastatin Calcium (Atorvastatin Calcium) 20 MG TABLET 1 Tablet ORAL DAILY Qty = 90 Comments: Last Taken: 07/07/17 Time: 5 PM Omeprazole (Omeprazole) 20 MG CAPSULE.DR 1 Capsule ORAL DAILY Qty = 90 Comments: Last Taken: 07/08/17 Time: 1000 Diltiazem HCl (Cardizem Cd) 240 MG CAP.ER.24H 1 Capsule ORAL Every Morning Qty = 90 Comments: Last Taken: 07/08/17 Time: 1000 AM Valsartan (Valsartan) 160 MG TABLET 1 Tablet ORAL DAILY Qty = 90 Comments: Last Taken: NOT GIVEN IN HOSPITAL Time: Sitagliptin Phos/Metformin HCl (Janumet 50-1,000 MG Tablet) 50 MG-1,000 MG TABLET 1 Tablet ORAL TWICE DAILY Qty = 180 Comments: Last Taken: NOT GIVEN IN HOSPITAL Time: Furosemide (Furosemide) 20 MG TABLET 3 Tablet ORAL TWICE DAILY Comments: Last Taken: NOT GIVEN 07/08/17 Time: Start taking the following new medications: Moxifloxacin HCl (Avelox) 400 MG TABLET 1 Tablet ORAL DAILY Qty = 3 No Refills Instructions: . Prednisone (Prednisone) 20 MG TABLET 20 Milligram ORAL GIVE ONCE Qty = 1 No Refills Instructions: Please take on 07/09/2017 Prednisone (Prednisone) 10 MG TABLET 10 Milligram ORAL DAILY Qty = 2 No Refills Instructions: Please take on 07/10/2017-07/11/2017 Copies To: Josué RNAD,Tae SYana; Rocky RAND,Karthik SYana; Coleen Schroeder MD; Mike Veronica MD Attending Review Statement Documenting Attending: Chad Stevens MD Other Findings: The patient was seen on the day of discharge and agree with the plan of care as outlined.
== END 2017-07-08 17:10 | DRG 202 ==
LOC: ERH 15:27 → 1NO 18:39 → ERHI 18:39 → ENRESERV 19:54 → ENTRNSPT 21:11 → 2NB 22:11 → CMPTRNSPT 07-07 07:03 → 1NO 07-07 15:28 → ENPENDDIS 07-08 13:16 → ENTRNSPT 07-08 16:36 → EDTRNSPT 07-08 16:41 → EDTRNSPTSTS 07-08 17:09 → EDTRNSPT 07-08 17:09 → 1NO 07-08 17:10 → CMPTRNSPT 07-08 17:30
PROVIDERS: Physician Assistant Medical; Student in an Organized Health Care Education/Training Program
DX: J20.9 Acute bronchitis, unspecified (principal); J96.01 Acute respiratory failure with hypoxia; I50.22 Chronic systolic (congestive) heart failure; I47.1 Supraventricular tachycardia; I11.0 Hypertensive heart disease with heart failure; I48.91 Unspecified atrial fibrillation; E83.42 Hypomagnesemia; E11.65 Type 2 diabetes mellitus with hyperglycemia; Z79.4 Long term (current) use of insulin; I25.10 Atherosclerotic heart disease of native coronary artery without angina pectoris; Z95.5 Presence of coronary angioplasty implant and graft; E78.5 Hyperlipidemia, unspecified; E05.90 Thyrotoxicosis, unspecified without thyrotoxic crisis or storm; R07.89 Other chest pain; Z95.0 Presence of cardiac pacemaker; R91.8 Other nonspecific abnormal finding of lung field
CPT/HCPCS: 1NSP; 2NBP; 36415; 71045; 82436; 87040; 87804; 87804-59; 93005; 93010; 97116-GO; 97161-GP; J0131; J0456; J1650; J2920; J2930; J3490